=== PATIENT | male | born 1965 | race Caucasian/White ===

== ENCOUNTER 2016-03-26 05:50 | Inpatient (IN) | payer BC ==
[~2016-03-26] VITALS: Ht 193 cm; Wt 93.0 kg
[2016-03-26] VITALS (8 sets, daily range): BP systolic 124–179; BP diastolic 80–104; PULSE 59–85; RESP 16–20; TEMP 97.7–98.4; O2SAT 91–100
[~2016-03-26 05:50] MED LIST: ATOR20TA42 PO; FISH1000 PO; LORTA5 PO; METO50TA11 PO
[2016-03-26] MEDS ORDERED: ACETAMINOPHEN 325 MG TAB PO ONE (06:30)
[2016-03-26] MEDS ORDERED: SODIUM CHLORIDE 0.9% FLUSH 5 ML FLUSH IVF PRN (06:30)
--- NOTE | 2016-03-26 06:51 | PD ---
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 Patient states Fairly severe last night. Patient states that he has had nausea and vomiting and is vomiting even his fluids his drinking. Patient states the pain has been coming and going particularly in his lower quadrants of his abdomen. He also states she's been having some diarrhea. No dysuria but has noticed decreased urine output. Patient states this has not happened to him before. On arrival patient states his symptoms are fairly mild. PFSH Past Medical History Atrial Fibrillation: Yes Heart Rhythm Problems: Yes (AFIB) Cancer: No Cardiovascular Problems: Yes Chest Pain: No Congestive Heart Failure: No Diabetes: No Diminished Hearing: No Endocrine: No Genitourinary: No Hepatitis: No Hiatal Hernia: No Immune Disorder: No Musculoskeletal: Yes (BACK) Neurologic: No Psychiatric: No Reproductive: No Respiratory: No Thyroid Disease: No Past Surgical History Abdominal Surgery: Yes (20% COLON REMOVED) Cardiac Surgery: Yes (CARDIAC CATH IN 2005, ABLATION 2012, HX A FIB) Ear Surgery: No Endocrine Surgery: No Eye Surgery: No Genitourinary Surgery: No Oral Surgery: No Thoracic Surgery: No Other Surgery: Yes Social History Alcohol Use: Yes (3-4 DAILY) Tobacco Use: Yes (1/2 PPD) Substance Use: No Allergies-Medications (Allergen,Severity, Reaction): Coded Allergies: Hydromorphone (Verified Allergy, Severe, Hives, 03/26/16) Reported Meds & Prescriptions Reported Meds & Active Scripts Active Reported Toprol XL (Metoprolol Succinate) 50 Mg Tab 50 Mg PO DAILY Fish Oil 1000 mg ([place]-3 Fatty Acids) 1 Cap Cap 1,000 Mg PO BID Lipitor (Atorvastatin Calcium) 20 Mg Tab 20 Mg PO HS Review of Systems Except as stated in HPI: all other systems reviewed are Neg Physical Exam Narrative GENERAL: Well-developed well-nourished no apparent distress SKIN: Warm and dry. HEAD: Atraumatic. Normocephalic. EYES: Pupils equal and round. No scleral icterus. No injection or drainage. ENT: No nasal bleeding or discharge. Mucous membranes pink and moist. NECK: Trachea midline. No JVD. CARDIOVASCULAR: Regular rate and rhythm. No murmur appreciated. RESPIRATORY: No accessory muscle use. Clear to auscultation. Breath sounds equal bilaterally. GASTROINTESTINAL: Abdomen soft, non-tender, nondistended. Hepatic and splenic margins not palpable. No CVA tenderness. No rebound or percussive tenderness. MUSCULOSKELETAL: No obvious deformities. No clubbing. No cyanosis. No edema. NEUROLOGICAL: Awake and alert. No obvious cranial nerve deficits. Motor grossly within normal limits. Normal speech. PSYCHIATRIC: Appropriate mood and affect; insight and judgment normal. Data Data Last Documented VS Vital Signs Date Time Temp Pulse Resp B/P Pulse Ox O2 Delivery O2 Flow Rate FiO2 03/26/16 11:14 59 18 124/81 100 Room Air 03/26/16 05:54 97.9 Orders Complete Blood Count With Diff (03/26/16 06:16) Comprehensive Metabolic Panel (03/26/16 06:16) Lipase (03/26/16 06:16) Lactic Acid (03/26/16 06:16) Prothrombin Time / Inr (Pt) (03/26/16 06:16) Act Partial Throm Time (Ptt) (03/26/16 06:16) Urinalysis - C+S If Indicated (03/26/16 06:16) Ct Abd/Pel W Iv Contrast(Rout) (03/26/16 06:16) Iv Access Insert/Monitor (03/26/16 06:16) Ecg Monitoring (03/26/16 06:16) Oximetry (03/26/16 06:16) Sodium Chloride 0.9% Flush (Ns Flush) (03/26/16 06:30) Electrocardiogram (03/26/16 06:16) Acetaminophen (Tylenol) (03/26/16 06:30) Morphine Inj (Morphine Inj) (03/26/16 07:00) Iohexol 350 Inj (Omnipaque 350 Inj) (03/26/16 08:15) Sodium Chlor 0.9% 1000 Ml Inj (Ns 1000 M (03/26/16 10:15) Admit Order (Ed Use Only) (03/26/16 11:17) Labs Laboratory Tests Test 03/26/16 03/26/16 03/26/16 03/26/16 06:35 06:40 07:23 10:00 White Blood Count 5.7 TH/MM3 Red Blood Count 5.59 MIL/MM3 Hemoglobin 18.2 GM/DL Hematocrit 51.6 % Mean Corpuscular Volume 92.3 FL Mean Corpuscular Hemoglobin 32.6 PG Mean Corpuscular Hemoglobin 35.3 % Concent Red Cell Distribution Width 12.8 % Platelet Count 153 TH/MM3 Mean Platelet Volume 9.3 FL Neutrophils (%) (Auto) 64.4 % Lymphocytes (%) (Auto) 20.6 % Monocytes (%) (Auto) 12.2 % Eosinophils (%) (Auto) 2.3 % Basophils (%) (Auto) 0.5 % Neutrophils # (Auto) 3.7 TH/MM3 Lymphocytes # (Auto) 1.2 TH/MM3 Monocytes # (Auto) 0.7 TH/MM3 Eosinophils # (Auto) 0.1 TH/MM3 Basophils # (Auto) 0.0 TH/MM3 CBC Comment DIFF FINAL Differential Comment Prothrombin Time 10.1 SEC Prothromb Time International 0.9 RATIO Ratio Activated Partial 25.7 SEC Thromboplast Time Lactic Acid Level 0.9 mmol/L Sodium Level 135 MEQ/L Potassium Level 4.0 MEQ/L Chloride Level 101 MEQ/L Carbon Dioxide Level 26.0 MEQ/L Anion Gap 8 MEQ/L Blood Urea Nitrogen 11 MG/DL Creatinine 0.97 MG/DL Estimat Glomerular Filtration 81 ML/MIN Rate Random Glucose 130 MG/DL Calcium Level 8.4 MG/DL Total Bilirubin 0.8 MG/DL Aspartate Amino Transf 13 U/L (AST/SGOT) Alanine Aminotransferase 21 U/L (ALT/SGPT) Alkaline Phosphatase 56 U/L Total Protein 6.7 GM/DL Albumin 3.3 GM/DL Lipase 99 U/L Ethyl Alcohol Level LESS THAN 3 MG/DL Urine Color YELLOW Urine Turbidity CLEAR Urine pH 6.0 Urine Specific [place] GREATER THAN 1.050 Urine Protein 30 mg/dL Urine Glucose (UA) NEG mg/dL Urine Ketones TRACE mg/dL Urine Occult Blood NEG Urine Nitrite NEG Urine Bilirubin NEG Urine Urobilinogen LESS THAN 2.0 MG/DL Urine Leukocyte Esterase NEG Urine RBC LESS THAN 1 /hpf Urine WBC 1 /hpf Urine Mucus MOD /lpf Microscopic Urinalysis Comment CULT NOT INDICATED Urine Opiates Screen POS Urine Barbiturates Screen NEG Urine Amphetamines Screen NEG Urine Benzodiazepines Screen NEG Urine Cocaine Screen NEG Urine Cannabinoids Screen NEG MDM Medical Decision Making Medical Screen Exam Complete: Yes Emergency Medical Condition: Yes Differential Diagnosis Bowel obstruction, gastritis, gastroenteritis, pancreatitis, cholecystitis, urinary tract infection. Narrative Course Patient was roomed in the emergency department, he was offered pain medicine prefers only Tylenol at this point. Patient's abdomen is fairly benign but he does have a complex surgical history. Therefore indications for CAT scan. Labs are ordered at this time. Discussed with Dr. Mares at change of shift follow-up labs and CAT scan disposition appropriately. Reggie Caraballo MD Mar 26, 2016 06:51
[2016-03-26 06:59] LABS: AUTOMATED NEUTROPHIL # 3.7 TH/MM3 (1.8-7.7); BASOPHIL % 0.5 % (0.0-2.0); EOSINOPHIL # 0.1 TH/MM3 (0-0.4); EOSINOPHIL % 2.3 % (0.0-4.0); HEMATOCRIT 51.6 % (39.0-51.0); HEMO FLAGS DIFF FINAL; LYMPH % 20.6 % (9.0-44.0); LYMPHOCYTE # 1.2 TH/MM3 (1.0-4.8); MEAN CELL VOLUME 92.3 FL (80.0-100.0); MEAN CORPUSCULAR HEMOGLOBIN 32.6 PG (27.0-34.0); MEAN CORPUSCULAR HGB CONC 35.3 % (32.0-36.0); MONO % 12.2 % (0.0-8.0); NEUT % 64.4 % (16.0-70.0); PLATELET COUNT 153 TH/MM3 (150-450); RED BLOOD COUNT 5.59 MIL/MM3 (4.50-5.90); RED CELL DISTRIBUTION WIDTH 12.8 % (11.6-17.2); WHITE BLOOD COUNT 5.7 TH/MM3 (4.0-11.0)
[2016-03-26] MEDS ORDERED: MORPHINE SULFATE 8 MG/ML INJ IV PUSH ONE (07:00)
[2016-03-26 07:09] LABS: APTT (PATIENT) 25.7 SEC (24.3-30.1); INTERNATIONAL NORMALIZED RATIO 0.9 RATIO; PROTHROMBIN TIME - PATIENT 10.1 SEC (9.8-11.6)
[2016-03-26 07:53] LABS: ANION GAP 8 MEQ/L (5-15); AST (GOT) 13 U/L (15-37); BLOOD UREA NITROGEN 11 MG/DL (7-18); CHLORIDE 101 MEQ/L (98-107); GLOMERULAR FILTRATION RATE 81 ML/MIN (>89); SODIUM (NA) 135 MEQ/L (136-145)
[2016-03-26 07:57] LABS: ALKALINE PHOSPHATASE 56 U/L (45-117); ALT (GPT) 21 U/L (12-78); TOTAL BILIRUBIN ADULT 0.8 MG/DL (0.2-1.0)
--- NOTE | 2016-03-26 08:10 | PD ---
Physical Exam Date Seen by Provider: Mar 26, 2016 Data Data Last Documented VS Vital Signs Date Time Temp Pulse Resp B/P Pulse Ox O2 Delivery O2 Flow Rate FiO2 03/26/16 11:14 59 18 124/81 100 Room Air 03/26/16 05:54 97.9 Orders Complete Blood Count With Diff (03/26/16 06:16) Comprehensive Metabolic Panel (03/26/16 06:16) Lipase (03/26/16 06:16) Lactic Acid (03/26/16 06:16) Prothrombin Time / Inr (Pt) (03/26/16 06:16) Act Partial Throm Time (Ptt) (03/26/16 06:16) Urinalysis - C+S If Indicated (03/26/16 06:16) Ct Abd/Pel W Iv Contrast(Rout) (03/26/16 06:16) Iv Access Insert/Monitor (03/26/16 06:16) Ecg Monitoring (03/26/16 06:16) Oximetry (03/26/16 06:16) Sodium Chloride 0.9% Flush (Ns Flush) (03/26/16 06:30) Electrocardiogram (03/26/16 06:16) Acetaminophen (Tylenol) (03/26/16 06:30) Morphine Inj (Morphine Inj) (03/26/16 07:00) Iohexol 350 Inj (Omnipaque 350 Inj) (03/26/16 08:15) Sodium Chlor 0.9% 1000 Ml Inj (Ns 1000 M (03/26/16 10:15) Admit Order (Ed Use Only) (03/26/16 11:17) Labs Laboratory Tests Test 03/26/16 03/26/16 03/26/16 03/26/16 06:35 06:40 07:23 10:00 White Blood Count 5.7 TH/MM3 Red Blood Count 5.59 MIL/MM3 Hemoglobin 18.2 GM/DL Hematocrit 51.6 % Mean Corpuscular Volume 92.3 FL Mean Corpuscular Hemoglobin 32.6 PG Mean Corpuscular Hemoglobin 35.3 % Concent Red Cell Distribution Width 12.8 % Platelet Count 153 TH/MM3 Mean Platelet Volume 9.3 FL Neutrophils (%) (Auto) 64.4 % Lymphocytes (%) (Auto) 20.6 % Monocytes (%) (Auto) 12.2 % Eosinophils (%) (Auto) 2.3 % Basophils (%) (Auto) 0.5 % Neutrophils # (Auto) 3.7 TH/MM3 Lymphocytes # (Auto) 1.2 TH/MM3 Monocytes # (Auto) 0.7 TH/MM3 Eosinophils # (Auto) 0.1 TH/MM3 Basophils # (Auto) 0.0 TH/MM3 CBC Comment DIFF FINAL Differential Comment Prothrombin Time 10.1 SEC Prothromb Time International 0.9 RATIO Ratio Activated Partial 25.7 SEC Thromboplast Time Lactic Acid Level 0.9 mmol/L Sodium Level 135 MEQ/L Potassium Level 4.0 MEQ/L Chloride Level 101 MEQ/L Carbon Dioxide Level 26.0 MEQ/L Anion Gap 8 MEQ/L Blood Urea Nitrogen 11 MG/DL Creatinine 0.97 MG/DL Estimat Glomerular Filtration 81 ML/MIN Rate Random Glucose 130 MG/DL Calcium Level 8.4 MG/DL Total Bilirubin 0.8 MG/DL Aspartate Amino Transf 13 U/L (AST/SGOT) Alanine Aminotransferase 21 U/L (ALT/SGPT) Alkaline Phosphatase 56 U/L Total Protein 6.7 GM/DL Albumin 3.3 GM/DL Lipase 99 U/L Ethyl Alcohol Level LESS THAN 3 MG/DL Urine Color YELLOW Urine Turbidity CLEAR Urine pH 6.0 Urine Specific [place] GREATER THAN 1.050 Urine Protein 30 mg/dL Urine Glucose (UA) NEG mg/dL Urine Ketones TRACE mg/dL Urine Occult Blood NEG Urine Nitrite NEG Urine Bilirubin NEG Urine Urobilinogen LESS THAN 2.0 MG/DL Urine Leukocyte Esterase NEG Urine RBC LESS THAN 1 /hpf Urine WBC 1 /hpf Urine Mucus MOD /lpf Microscopic Urinalysis Comment CULT NOT INDICATED Urine Opiates Screen POS Urine Barbiturates Screen NEG Urine Amphetamines Screen NEG Urine Benzodiazepines Screen NEG Urine Cocaine Screen NEG Urine Cannabinoids Screen NEG MDM Medical Record Reviewed: Yes Supervised Visit with CHARLIE: No Interpretation(s) EKG at 0840: NSR at 63bpm, qt/qtc: 414/421, no acute changes Vital Signs Date Time Temp Pulse Resp B/P Pulse Ox O2 Delivery O2 Flow Rate FiO2 03/26/16 08:21 18 03/26/16 07:26 18 03/26/16 05:54 97.9 85 18 160/104 95 Room Air Differential Diagnosis Small bowel obstruction, gastritis, peptic ulcer disease, UTI Narrative Course Patient was signed out to me by Dr. Caraballo at shift change Patient is a 50-year-old male who presents to emergency room with complaints of right lower quadrant abdominal pain for the past 2 days. Patient reports that he has been feeling nauseous and did vomit with this pain a day ago. Reports that symptoms have been intermittent in nature and lasts about 10 minutes at a time. Patient reports that when he is symptomatic, he is severe sharp pains to his lower abdomen. Patient reports that symptoms have been getting worse over the past 2 days, concern that pain is not going away. Patient also reports concern as he does have history of colon mass which was resected a few years ago. Patient with no obvious fevers or chills at this time. Patient with no recent travels or trips. Labs as well as CT pending. I reviewed all labs as well as CT studies with patient in detail. Last Impressions Abdomen/Pelvis CT 03/26/16 0616 Signed Impressions: Service Date/Time: Saturday, March 26, 2016 08:04 - CONCLUSION: 1. The examination demonstrates abdominal ascites. There is heterogeneous enhancement of the liver suggesting cirrhosis. 2. There has been resection of the cecum and ascending colon. There is diffuse thickening and inflammation of multiple loops of distal ileum throughout the right lower quadrant. There is fluid surrounding these loops of bowel. They are moderately dilated however there is gas and stool within the remaining portions of colon. The inflammatory changes within the small bowel are nonspecific. Followup to ensure there is no underlying obstruction would be warranted. The celiac, SMA and CAMRON are widely patent. Overall, findings are most consistent with a nonspecific enteritis. Rolf Diehl MD The diagnosis of enteritis versus colitis reviewed with patient. Patient was offered admission as he reports nausea and vomiting with symptoms. Patient would like to try by mouth trial first as he reports that he has not been able to drink anything for the past 2 days. If patient does tolerate fluids here, patient would like to be discharged home. Patient was given oral trial, reports severe pain to right lower quadrant after he was given fluids. Patient reports that he feels nauseous and is afraid to go home with pain and nausea. Will obs for serial abdominal exams Case reviewed with Dr. Thomas who accepts pt to service I inadvertently admitted patient to [facility] service instead of [facility] - case reviewed with dr shields - is okay with having patient admitted to their service if they would like the admission, family service accepts pt Diagnosis Primary Impression: Enteritis Additional Impression: Nausea & vomiting Admitting Information Admitting Physician Requests: Observation Anjelica Mares DO Mar 26, 2016 08:10
[2016-03-26] MEDS ORDERED: IOHEXOL 350 MG/ML 10 ML VIAL (for RAD DIAG) IV ONE (08:15)
--- NOTE | 2016-03-26 08:30 | RADRPT ---
EXAM DATE/TIME: 03/26/2016 08:04 [facility] COMPARISON: No previous studies available for comparison. INDICATIONS : Abdominal pain x 2 days. IV CONTRAST: 80 cc Omnipaque 350 (iohexol) IV ORAL CONTRAST: No oral contrast ingested. RADIATION DOSE: 9.96 CTDIvol (mGy) MEDICAL HISTORY : Cardiovascular disease. SURGICAL HISTORY : Cardiac catherization. Cardiac ablation. Colectomy. ENCOUNTER: Initial ACUITY: 2 days PAIN SCALE: 3/10 LOCATION: Bilateral abdomen TECHNIQUE: Volumetric scanning of the abdomen and pelvis was performed. Using automated exposure control and ad justment of the mA and/or kV according to patient size, radiation dose was kept as low as reasonably achievable to obtain optimal diagnostic quality images. FINDINGS: Imaging through the lung bases demonstrates a small area of scarring evident in the anterior aspect o f the right upper lobe. No suspicious lesions are identified. The exam demonstrates heterogeneous enhancement of the liver. There is a small amount of fluid within the upper abdomen. The spleen is at the upper limits of normal in size. Exam would suggest cirrhosis . The pancreas, adrenal glands and kidneys are within normal limits. Incidental note is made of a 1 cm simple cyst in the left kidney. The abdominal aorta is normal in caliber. The celiac, SMA and CAMRON are widely patent No retroperitonea l adenopathy is present. TThe examination demonstrates previous resection of the cecum and descending colon. There is diffuse thickening of multiple loops of distal ileum up to the ileocolic anastomosis. There is fluid evident surrounding these loops of bowel. There are no definite findings to indicate bowel obstruction. Exam would be most consistent with a nonspecific enteritis. Followup to ensure passage of oral contrast th rough these areas would be warranted. There is free fluid within the pelvis. No iliac or inguinal adenopathy is seen. The prostate is óscar l in size. The visualized bony structures demonstrate an old, healed fracture of the left 6 and seventh lateral ribs. There are minimal degenerative changes within the spine. CONCLUSION: 1. The examination demonstrates abdominal ascites. There is heterogeneous enhancement of the liver [place] ggesting cirrhosis. 2. There has been resection of the cecum and ascending colon. There is diffuse thickening and inflamm ation of multiple loops of distal ileum throughout the right lower quadrant. There is fluid surroundi ng these loops of bowel. They are moderately dilated however there is gas and stool within the remain ing portions of colon. The inflammatory changes within the small bowel are nonspecific. Followup to e nsure there is no underlying obstruction would be warranted. The celiac, SMA and CAMRON are widely paten t. Overall, findings are most consistent with a nonspecific enteritis. Rolf Diehl MD on March 26, 2016 at 8:18 Board Certified Radiologist. This report was verified electronically.
[2016-03-26] MEDS ORDERED: SODIUM CHLOR 0.9% 1000 ML INJ 1,000 ML IV ONE (10:15)
[2016-03-26] MEDS ORDERED: OMEG100037 PO (10:21)
[2016-03-26] MEDS ORDERED: TOPR50TA PO (10:21)
[2016-03-26] MEDS ORDERED: LIPI20TA PO (10:21)
[2016-03-26 10:37] LABS: BLOOD, URINE NEG (NEG); COMMENT (UR) CULT NOT INDICATED; CULTURE IF INDICATED CULT NOT INDICATED; GLUCOSE,URINE NEG (NEG); KETONE, URINE TRACE mg/dL (NEG); MUCUS URINE MOD /lpf (OCC); NITRITE,URINE NEG (NEG); URINE COLOR YELLOW (YELLW/STRAW)
--- NOTE | 2016-03-26 11:26 | HHI.HP ---
[facility] Service Family Medicine Primary Care Physician Claire Orona Admission Diagnosis Intractable abdominal pain, enteritis Diagnoses: International Travel<30 Days: No Contact w/Intl Traveler<30days: No Known Affected Area: No History of Present Illness Patient is a 50-year-old male with past medical history significant for laparoscopic colectomy due to a benign mass, presenting due to persistent lower abdominal pain. Patient reports that on Saturday at approximately 10 AM he began to have sharp pain in his lower abdomen. Pain occurs intermittently about every 10 minutes, 89/10 in intensity, he describes the pain as a burning sensation. Pain has been associated with vomiting, nonbloody. There are no alleviating factors, pain is made worse by eating or drinking. He came to the ED because he has been unable to tolerate this pain. His pain has not improved. He has not been able to eat solid food since Saturday, but he has tolerated liquids while in the ED. Yesterday he had a very dark liquid stool, unsure if it was bloody. He denies any new medications, new foods, sick contacts. On Saturday he ate at a restaurant and shared a hamburger with his . His denies similar symptoms. He last passed gas and had a bowel movement yesterday. He has been belching, negative flatus today. He denies ever having similar pain in the past. (Leni Thomas MD R2) Review of Systems Constitutional: DENIES: Fever, Chills Eyes: DENIES: Blurred vision Respiratory: DENIES: Shortness of breath Cardiovascular: DENIES: Chest pain Gastrointestinal: COMPLAINS OF: Abdominal pain, Black stools, Nausea, Vomiting Genitourinary: DENIES: Dysuria Musculoskeletal: DENIES: Joint pain, Muscle aches Integumentary: DENIES: Rash Neurologic: DENIES: Headache Psychiatric: DENIES: Anxiety, Mood changes (Leni Thomas MD R2) Past Family Social History Past Medical History A. Fib, s/p ablation Hyperlipidemia Past Surgical History Colon Surgery due to benign mass, Dr. Thomas Next colonoscopy April 2016 Reported Medications Reported Meds & Active Scripts Active Reported Toprol XL (Metoprolol Succinate) 50 Mg Tab 50 Mg PO DAILY Fish Oil 1000 mg (Carey-3 Fatty Acids) 1 Cap Cap 1,000 Mg PO BID Lipitor (Atorvastatin Calcium) 20 Mg Tab 20 Mg PO HS (Leni Thomas MD R2) Allergies: Coded Allergies: Hydromorphone (Verified Allergy, Severe, Hives, 03/26/16) Active Ordered Medications Inpatient Medications Acetaminophen (Tylenol) 650 mg Q4H PRN PO TEMP>100.4F,PAIN1-10,IRRITABLE; Start 03/26/16 at 11:30 Acetaminophen/ Hydrocodone Bitart ([place] 5-325 Mg) 1 tab Q4H PRN PO PAIN SCALE 1 TO 5; Start 03/26/16 at 12:00 Acetaminophen/ Hydrocodone Bitart ([place] 10-325 Mg) 1 tab Q4H PRN PO PAIN SCALE 6 TO 10; Start 03/26/16 at 12:00 Atorvastatin Calcium (Lipitor) 20 mg HS PO ; Start 03/26/16 at 21:00 Flumazenil (Romazicon Inj) 0.2 mg Q1M PRN IV PUSH SEE LABEL COMMENTS; Start at 11:45 IV Flush (NS Flush) 2 ml BID FLUSH ; Start 03/26/16 at 21:00 Lorazepam (Ativan Inj) 2 mg Q15M PRN IV PUSH CIWA > 20; Start 03/26/16 at 11:45 Lorazepam (Ativan) 2 mg Q2H PRN PO CIWA 11-14; Start 03/26/16 at 11:45 Metoclopramide HCl (Reglan Inj) 10 mg Q6H PRN IV NAUSEA OR VOMITING; Start at 12:00 Metoprolol Succinate (Toprol Xl) 50 mg DAILY PO ; Start 03/27/16 at 09:00 Morphine Sulfate (Morphine Inj) 4 mg Q3H PRN IV PUSH BREAKTHROUGH PAIN Last administered on 03/26/16t 14:10; Start 03/26/16 at 12:00 Morphine Sulfate 6 mg 6 mg ONCE ONCE IV PUSH Last administered on 03/26/16t 07 :26; Start 03/26/16 at 07:00; Stop 03/26/16 at 07:01; Status DC Ondansetron HCl (Zofran Inj) 4 mg Q6HR PRN IV NAUSEA OR VOMITING; Start at 12:00 Pantoprazole Sodium (Protonix Inj) 40 mg DAILY IV ; Start 03/27/16 at 09:00 Piperacillin Sod/ Tazobactam Sod (Zosyn 3.375 Gm Premix) 50 ml @ 100 mls/hr Q6H IV ; Start 03/26/16 at 16:00 Prochlorperazine (Compazine Supp) 25 mg Q12HR PRN VA NAUSEA OR VOMITING; Start 03/26/16 at 12:00 Simethicone 125 mg 125 mg Q8HR PO Last administered on 03/26/16 14:09; Start 03/26/16 at 14:00 Sodium Chloride (NS 1000 ml Inj) 1,000 ml @ 130 mls/hr Q7H42M IV Last administered on 03/26/16 12:07; Start 03/26/16 at 11:28 Family History Mother: Unknown Father: at 80, cardiac bypass Social History Currently works reconditioning both propellers. Lives at home with girlfriend Smokes 1/2 Pack to 1 PPD, for the past 20yrs Drinks about 24 case of beer per week Denies illicit drug use. (Leni Thomas MD R2) Physical Exam Vital Signs Vital Signs Date Time Temp Pulse Resp B/P Pulse Ox O2 Delivery O2 Flow Rate FiO2 03/26/16 11:14 59 18 124/81 100 Room Air 03/26/16 10:50 99 Room Air 03/26/16 08:21 18 03/26/16 07:26 18 03/26/16 05:54 97.9 85 18 160/104 95 Room Air Physical Exam GENERAL: This is a well-nourished, well-developed patient, in no apparent distress. SKIN: No rashes, ecchymoses or lesions. Cool and dry. HEAD: Atraumatic. Normocephalic. No temporal or scalp tenderness. EYES: Pupils equal round and reactive. Extraocular motions intact. No scleral icterus. No injection or drainage. ENT: Nose without bleeding, purulent drainage or septal hematoma. Throat without erythema, tonsillar hypertrophy or exudate. Uvula deviated to the left. Airway patent. NECK: Trachea midline. No JVD or lymphadenopathy. Supple, nontender, no meningeal signs. CARDIOVASCULAR: Regular rate and rhythm without murmurs, gallops, or rubs. RESPIRATORY: Clear to auscultation. Breath sounds equal bilaterally. No wheezes , rales, or rhonchi. GASTROINTESTINAL: Abdomen soft, nondistended, patient endorses left lower quadrant tenderness with deep palpation, no dominant tenderness on light palpation. No hepato-splenomegaly, or palpable masses. No guarding. Negative Dailey sign. + Bowel sounds. MUSCULOSKELETAL: Extremities without clubbing, cyanosis, or edema. No joint tenderness, effusion, or edema noted. No calf tenderness. Negative Homans sign bilaterally. NEUROLOGICAL: Awake and alert. Motor and sensory grossly within normal limits. Five out of 5 muscle strength in all muscle groups. Normal speech. Laboratory Laboratory Tests Test 03/26/16 03/26/16 03/26/16 03/26/16 06:35 06:40 07:23 10:00 White Blood Count 5.7 Red Blood Count 5.59 Hemoglobin 18.2 Hematocrit 51.6 Mean Corpuscular Volume 92.3 Mean Corpuscular Hemoglobin 32.6 Mean Corpuscular Hemoglobin 35.3 Concent Red Cell Distribution Width 12.8 Platelet Count 153 Mean Platelet Volume 9.3 Neutrophils (%) (Auto) 64.4 Lymphocytes (%) (Auto) 20.6 Monocytes (%) (Auto) 12.2 Eosinophils (%) (Auto) 2.3 Basophils (%) (Auto) 0.5 Neutrophils # (Auto) 3.7 Lymphocytes # (Auto) 1.2 Monocytes # (Auto) 0.7 Eosinophils # (Auto) 0.1 Basophils # (Auto) 0.0 CBC Comment DIFF FINAL Differential Comment Prothrombin Time 10.1 Prothromb Time International 0.9 Ratio Activated Partial 25.7 Thromboplast Time Lactic Acid Level 0.9 Sodium Level 135 Potassium Level 4.0 Chloride Level 101 Carbon Dioxide Level 26.0 Anion Gap 8 Blood Urea Nitrogen 11 Creatinine 0.97 Estimat Glomerular Filtration 81 Rate Random Glucose 130 Calcium Level 8.4 Total Bilirubin 0.8 Aspartate Amino Transf 13 (AST/SGOT) Alanine Aminotransferase 21 (ALT/SGPT) Alkaline Phosphatase 56 Total Protein 6.7 Albumin 3.3 Lipase 99 Urine Color YELLOW Urine Turbidity CLEAR Urine pH 6.0 Urine Specific [place] GREATER THAN 1.050 Urine Protein 30 Urine Glucose (UA) NEG Urine Ketones TRACE Urine Occult Blood NEG Urine Nitrite NEG Urine Bilirubin NEG Urine Urobilinogen LESS THAN 2.0 Urine Leukocyte Esterase NEG Urine RBC LESS THAN 1 Urine WBC 1 Urine Mucus MOD Microscopic Urinalysis Comment CULT NOT INDICATED (Leni Thomas MD R2) Result Diagram: 03/26/16 0635 03/26/16 0723 Imaging Last 24 hours Impressions Abdomen/Pelvis CT 03/26/16 0616 Signed Impressions: Service Date/Time: Saturday, March 26, 2016 08:04 - CONCLUSION: 1. The examination demonstrates abdominal ascites. There is heterogeneous enhancement of the liver suggesting cirrhosis. 2. There has been resection of the cecum and ascending colon. There is diffuse thickening and inflammation of multiple loops of distal ileum throughout the right lower quadrant. There is fluid surrounding these loops of bowel. They are moderately dilated however there is gas and stool within the remaining portions of colon. The inflammatory changes within the small bowel are nonspecific. Followup to ensure there is no underlying obstruction would be warranted. The celiac, SMA and CAMRON are widely patent. Overall, findings are most consistent with a nonspecific enteritis. Rolf Diehl MD (Leni Thomas MD R2) Assessment and Plan Assessment and Plan Patient is a 50-year-old male with past medical history significant for laparoscopic colectomy due to a benign mass, presenting due to persistent lower abdominal pain, nausea and vomiting, admitted with enteritis. Code Status Full Discussed Condition With sdw Dr. Perez wdw Dr. Manzo, Dr. Hazel (Leni Thomas MD R2) Attending Attestation The patient has been seen and examined. The chart and all resident notes have been reviewed. I agree that inpatient care is appropriate and that a two midnight stay is expected for the reasons documented in the resident history and physical. I have discussed this with the resident and certify the resident s order for inpatient admission. (Marni Manzo MD) Problem List: (1) Enteritis Status: Acute Plan: Patient endorses intractable intermittent lower abdominal pain that has persisted over the past 2 days, associated with nausea and vomiting. He has history of partial colectomy to remove a benign mass. Pain has significantly improved, mild left lower quadrant pain with deep palpation of the left lower quadrant. Patient with negative flatus, had one loose dark bowel movement x1 yesterday. -Hemoccult was negative -Stool Hemoccult ordered -Monitor for bowel movement, passage of gas. -Zosyn 3.375 g IV Q6hrs to cover for possible intra-abdominal infection -Consider consulting Dr. Tuyet Thomas, who preformed GI surgery in 2013, or one of her partners Pain control: [place] 5/325, 1 tab Q4hrs prn pain 15 [place] 10/325, 1 tab Q4hrs prn pain 6-10 Morphine prn breakthrough Imaging: Abdomen/pelvis CT: Abdominal ascites. Heterogenous enhancement of the liver suggesting cirrhosis. Resection of the cecum and ascending colon. There is diffuse thickening and inflammation of multiple loops of distal ileum throughout the right lower quadrant. There is fluid surrounding these loops of bowel. They are moderately dilated however there is gas and stool within the remaining portions of colon. The inflammatory changes within the small bowel are nonspecific. Follow-up to ensure there is no underlying obstruction would be warranted. Findings are most consistent with a nonspecific enteritis. (2) Nausea & vomiting Status: Acute Plan: Patient has been able to tolerate liquids by mouth while in the ED, reassuring. -Zofran 4 mg IV Q6hrs PRN -Reglan 10mg IV PRN -Compazine Supp PRN (3) History of alcohol use Status: Acute Plan: -Will check blood ethanol level -[facility] protocol ordered (4) Liver cirrhosis Status: Acute Plan: CT of the abdomen was significant for heterogenous enhancement of the liver suggesting cirrhosis. Patient denies history of hepatitis. LFTs are within normal limits -We'll check hepatitis profile (5) HTN (hypertension) Status: Acute Plan: Continue home metoprolol succinate 50 mg PO Daily (6) Hyperlipemia Status: Acute Plan: -Continue home atorvastatin 20 mg po QHS (7) FEN/PPX Status: Acute Plan: Fluids: Normal saline at 130 mls/hr Electrolytes: Sodium slightly low at 135, continue to monitor and replete as necessary Nutrition: Full liquid diet, to be advanced as tolerated Dvt PPX: Lovenox GI PPX: Protonix (Leni Thomas MD R2) Leni Thomas MD R2 Mar 26, 2016 11:26 Marni Manzo MD Mar 27, 2016 16:02
[2016-03-26] MEDS ORDERED: SODIUM CHLORIDE 0.9% FLUSH 5 ML FLUSH FLUSH PRN (11:30)
[2016-03-26] MEDS ORDERED: ACETAMINOPHEN 325 MG TAB PO PRN (11:30)
[2016-03-26] MEDS ORDERED: LORazepam 2 MG/ML VIAL IV PUSH PRN ×4 (11:45)
[2016-03-26] MEDS ORDERED: FLUMAZENIL 0.5 MG/5 ML VIAL IV PUSH PRN (11:45)
[2016-03-26] MEDS ORDERED: LORazepam 1 MG TAB PO PRN (11:45)
[2016-03-26] MEDS ORDERED: LORazepam 2 MG TAB PO PRN (11:45)
[2016-03-26] MEDS ORDERED: METOCLOPRAMIDE HCL 10 MG/2 ML VIAL IV PRN (12:00)
[2016-03-26] MEDS ORDERED: PROCHLORPERAZINE 25 MG SUPP PR PRN (12:00)
[2016-03-26] MEDS ORDERED: ACETAMINOPHEN/HYDROcodone 325 MG/10 MG TAB PO PRN (12:00)
[2016-03-26] MEDS ORDERED: ACETAMINOPHEN/HYDROcodone 325 MG/5 MG TAB PO PRN (12:00)
[2016-03-26] MEDS: SODIUM CHLOR 0.9% 1000 ML INJ 1,000 ML IV SCH ×2 (12:07→20:42)
[2016-03-26 12:36] LABS: AMPHETAMINE, URINE NEG (NEG); BARBITURATES, URINE NEG (NEG); COCAINE, URINE NEG (NEG)
[2016-03-26] MEDS: SIMETHICONE 125 MG CHEWABLE TAB PO SCH ×2 (14:09→20:41)
[2016-03-26] MEDS: MORPHINE SULFATE 4 MG/ML INJ IV PUSH PRN ×3 (14:10→20:46)
[2016-03-26] MEDS: PIPERACIL-TAZO 3.375 GM PREMIX 50 ML IV SCH ×2 (16:14→20:43)
--- NOTE | 2016-03-26 16:27 | HHI.FPPN ---
Subjective Subjective Patient seen and examined. Case reviewed and discussed with the resident team. Please refer to resident H&P for further details regarding HPI, ROS, PMH, SurgHx , Fh and SocHx In summary, patient is a 50yoM with a history of partial ascending colectomy by Dr. Thomas in 04/2013 presenting with 2-3 days history of RL abdominal pain, distention and inability to pass stool. He presents today after progressive worsening of lower abdominal pain and minimal flatus. He has had limited PO intake due to pain with oral intake of fluids/food. No fevers, chills. +Vomitus, which patient describes as black yesterday, no emesis today. Denies nausea. [facility] Objective Objective Last Impressions Abdomen/Pelvis CT 03/26/16 0616 Signed Impressions: Service Date/Time: Saturday, March 26, 2016 08:04 - CONCLUSION: 1. The examination demonstrates abdominal ascites. There is heterogeneous enhancement of the liver suggesting cirrhosis. 2. There has been resection of the cecum and ascending colon. There is diffuse thickening and inflammation of multiple loops of distal ileum throughout the right lower quadrant. There is fluid surrounding these loops of bowel. They are moderately dilated however there is gas and stool within the remaining portions of colon. The inflammatory changes within the small bowel are nonspecific. Followup to ensure there is no underlying obstruction would be warranted. The celiac, SMA and CAMRON are widely patent. Overall, findings are most consistent with a nonspecific enteritis. Rolf Diehl MD Laboratory Tests - Abnormals Test 03/26/16 03/26/16 03/26/16 06:35 07:23 10:00 Hemoglobin 18.2 GM/DL Hematocrit 51.6 % Monocytes (%) (Auto) 12.2 % Sodium Level 135 MEQ/L Estimat Glomerular Filtration 81 ML/MIN Rate Random Glucose 130 MG/DL Calcium Level 8.4 MG/DL Aspartate Amino Transf 13 U/L (AST/SGOT) Albumin 3.3 GM/DL Urine Specific [place] GREATER THAN 1.050 Urine Protein 30 mg/dL Urine Ketones TRACE mg/dL Urine Mucus MOD /lpf Urine Opiates Screen POS Vital Signs 03/26/16 03/26/16 03/26/16 03/26/16 05:54 07:26 08:21 10:50 Temp 97.9 Pulse 85 Resp 18 18 18 B/P 160/104 Pulse Ox 95 99 O2 Delivery Room Air Room Air 03/26/16 03/26/16 11:14 14:13 Pulse 59 69 Resp 18 16 B/P 124/81 179/102 Pulse Ox 100 98 O2 Delivery Room Air Room Air Physical exam GENERAL: WDWN male, resting in ER bed. Mild painful distress. SKIN: Warm and dry. No rashes, lesions HEAD: Normocephalic AT. EYES: No scleral icterus. No injection or drainage. ENT: OP clear, MM slightly dry. NECK: Supple, trachea midline. No JVD or lymphadenopathy. CARDIOVASCULAR: Regular rate and rhythm without audible murmurs, gallops, or rubs. RESPIRATORY: Breath sounds equal and clear to auscultation bilaterally. No accessory muscle use. GASTROINTESTINAL: Abdomen soft, mild tenderness, worse over RLQ, mildly distended. No rebound, no guarding. Tinkering BS, hypoactive. MUSCULOSKELETAL: No cyanosis, or edema. No calf tenderness BACK: Nontender without obvious deformity. No CVA tenderness. NEURO: Awake and alert. Normal speech. CN grossly intact. Assessment Assessment 50yoM admitted with: Abdominal pain, ileitis, concern for ileus Hx ascending colectomy for benign polyp Dehydration Intractable pain Elevated BP Tobacco dependence Hx AF s/p ablation Heavy alcohol consumption with cirrhosis PLAN PLAN IVF Pain control, care with narcotics Consult to CRS, known to Dr. Tuyet Thomas flat, upright AXR in the AM Empiric antibiotic therapy for ileitis Trend cbc, CMP Mobilization, OOB Is/Os Resume home meds as appropriate Patient seen and examined. Case reviewed and discussed Agree with plan of care as discussed with me and documented in the resident note. Marni Manzo MD Mar 26, 2016 16:27
[2016-03-26] MEDS: ONDANSETRON HCL 4 MG/2 ML VIAL IV PRN (17:50)
[2016-03-26] MEDS: SODIUM CHLORIDE 0.9% FLUSH 5 ML FLUSH FLUSH SCH (20:43)
[2016-03-26] MEDS: ENOXAPARIN SODIUM 40 MG/0.4 ML SYRINGE SQ SCH (20:44)
[2016-03-26] MEDS: ATORVASTATIN 20 MG TAB PO SCH (20:51)
[2016-03-27] MEDS: MORPHINE SULFATE 4 MG/ML INJ IV PUSH PRN ×2 (00:29→05:26)
[2016-03-27] MEDS: ONDANSETRON HCL 4 MG/2 ML VIAL IV PRN (00:29)
[2016-03-27] MEDS: SIMETHICONE 125 MG CHEWABLE TAB PO SCH ×3 (05:26→20:22)
[2016-03-27] MEDS: PIPERACIL-TAZO 3.375 GM PREMIX 50 ML IV SCH ×2 (05:26→09:16)
[2016-03-27] MEDS: SODIUM CHLOR 0.9% 1000 ML INJ 1,000 ML IV SCH ×3 (05:26→17:38)
[2016-03-27 06:14] VITALS: BP 121/73; PULSE 64; RESP 18; TEMP 97.1; O2SAT 94
[2016-03-27 07:02] LABS: AUTOMATED NEUTROPHIL # 2.7 TH/MM3 (1.8-7.7); BASOPHIL % 0.3 % (0.0-2.0); EOSINOPHIL # 0.1 TH/MM3 (0-0.4); EOSINOPHIL % 1.2 % (0.0-4.0); HEMATOCRIT 46.5 % (39.0-51.0); HEMO FLAGS DIFF FINAL; LYMPH % 21.7 % (9.0-44.0); LYMPHOCYTE # 0.9 TH/MM3 (1.0-4.8); MEAN CELL VOLUME 91.9 FL (80.0-100.0); MEAN CORPUSCULAR HEMOGLOBIN 32.3 PG (27.0-34.0); MEAN CORPUSCULAR HGB CONC 35.1 % (32.0-36.0); NEUT % 62.8 % (16.0-70.0); PLATELET COUNT 146 TH/MM3 (150-450); RED BLOOD COUNT 5.05 MIL/MM3 (4.50-5.90); RED CELL DISTRIBUTION WIDTH 12.8 % (11.6-17.2); WHITE BLOOD COUNT 4.3 TH/MM3 (4.0-11.0)
[2016-03-27 07:29] LABS: BICARBONATE 26.6 MEQ/L (21.0-32.0); POTASSIUM 3.7 MEQ/L (3.5-5.1)
[2016-03-27] MEDS: SODIUM CHLORIDE 0.9% FLUSH 5 ML FLUSH FLUSH SCH ×2 (08:18→20:22)
[2016-03-27 08:24] VITALS: BP 166/94; PULSE 63; RESP 17; TEMP 98.4; O2SAT 94
--- NOTE | 2016-03-27 08:36 | EKG ---
Date Performed: 03/26/2016 Time Performed: 08:40:43 PTAGE: 50 years EKG: Sinus rhythm POSSIBLE RIGHT VENTRICULAR CONDUCTION DELAY PROBABLE INFERIOR MYOCARDIAL INFARCTION ABNORMAL ECG PREVIOUS TRACING : 04/22/2013 18.30 Compared to prior tracing no significant change DOCTOR: Sadiq Thomas Interpretating Date/Time 03/27/2016 08:34:42
[2016-03-27] MEDS ORDERED: PANTOPRAZOLE SODIUM 40 MG VIAL IV SCH (09:00)
[2016-03-27] MEDS: METOPROLOL SUCCINATE 50 MG EXTENDED RELEASE TAB PO SCH (09:16)
--- NOTE | 2016-03-27 09:55 | HHI.FPPN ---
Subjective Remarks Pt seen and examined this morning. He had severe abdominal pain overnight, partially relived by pain medication. +flatus, has not yet had a bowel movement. Endorses nausea, denies vomiting. He has been able to tolerate po liquids, but this causes abdominal discomfort. (Leni Thomas MD R2) Objective Vitals Vital Signs Date Time Temp Pulse Resp B/P Pulse Ox O2 Delivery O2 Flow Rate FiO2 03/27/16 08:24 98.4 63 17 166/94 94 03/27/16 06:14 97.1 64 18 121/73 94 03/27/16 06:11 16 03/26/16 23:59 98.4 65 18 172/88 94 03/26/16 22:11 98.2 64 18 152/80 91 03/26/16 16:47 66 16 162/83 97 Room Air 03/26/16 14:13 69 16 179/102 98 Room Air 03/26/16 11:14 59 18 124/81 100 Room Air 03/26/16 10:50 99 Room Air (Leni Thomas MD R2) Result Diagram: 03/27/16 0607 03/27/16 0607 Objective Remarks GENERAL: This is a well-nourished, well-developed patient, appears to be uncomfortable. SKIN: No rashes, ecchymoses or lesions. Cool and dry. HEENT: Atraumatic. Normocephalic. Extraocular motions intact. No scleral icterus. No injection or drainage. Nose without bleeding, purulent drainage or septal hematoma. Throat without erythema, tonsillar hypertrophy or exudate. Uvula deviated to the left. Airway patent. CARDIOVASCULAR: Regular rate and rhythm without murmurs, gallops, or rubs. RESPIRATORY: Clear to auscultation. Breath sounds equal bilaterally. No wheezes , rales, or rhonchi. GASTROINTESTINAL: Abdomen soft, slightly distended, patient endorses andrea difuse lower abdominal tenderness, no rebound. No hepato-splenomegaly, or palpable masses. + Bowel sounds. MUSCULOSKELETAL: Extremities without clubbing, cyanosis, or edema. No joint tenderness, effusion, or edema noted. No calf tenderness. Negative Homans sign bilaterally. NEUROLOGICAL: Awake and alert. Motor and sensory grossly within normal limits. Normal speech. (Leni Thomas MD R2) A/P Assessment and Plan Patient is a 50-year-old male with past medical history significant for laparoscopic colectomy due to a benign mass, presenting due to persistent lower abdominal pain, nausea and vomiting, admitted with enteritis. Discharge Planning Antiipate discharge in 1-2 days, pending clearance by GI and colorectal surgery. sdw Dr. Manzo, Dr. Hazel, Dr. Perez, Dr. Salas (Leni Thomas MD R2) Attending Attestation Patient seen and examined with the resident team. Case reviewed and discussed with the resident team Agree with plan of care as discussed with me and documented in the resident note. (Marni Manzo MD) Problem List: (1) Partial small bowel obstruction Status: Acute Plan: Abdominal x-ray significant for partial small bowel obstruction. Pt continues to endorse abdominal pain, appears more distended on exam today. Update: Pt has had a bowel movement this afternoon, resolving. -GI consulted, appreciate recommendations -If patient develops nausea and vomiting consider NG tube placement -Dr. Tuyet Thomas, who preformed GI surgery in 2013 has been consulted, appreciate recommendations Imagin03/27/16: Bowel gas pattern concerning for partial small bowel obstruction with air-fluid levels and multiple small bowel loops visualized. Minimal air in the rectal vault. (2) Enteritis Status: Acute Plan: Patient endorses intractable intermittent lower abdominal pain, partially relieved by pain medication. He has history of partial colectomy to remove a benign mass. +flatus, has not had a bowel movement since being admitted. -Hemoccult was negative -Stool Hemoccult ordered -Monitor for bowel movement, passage of gas. -Stool studies ordered by GI -Zosyn 3.375 g IV Q6hrs to cover for possible intra-abdominal infection, Discontinued (03/26-03/27) Pain control: [place] 5/325, 1 tab Q4hrs prn pain 15 [place] 10/325, 1 tab Q4hrs prn pain 6-10 Morphine prn breakthrough Imaging: Abdomen/pelvis CT: Abdominal ascites. Heterogenous enhancement of the liver suggesting cirrhosis. Resection of the cecum and ascending colon. There is diffuse thickening and inflammation of multiple loops of distal ileum throughout the right lower quadrant. There is fluid surrounding these loops of bowel. They are moderately dilated however there is gas and stool within the remaining portions of colon. The inflammatory changes within the small bowel are nonspecific. Follow-up to ensure there is no underlying obstruction would be warranted. Findings are most consistent with a nonspecific enteritis. (3) Nausea & vomiting Status: Acute Plan: Patient has been able to tolerate liquids by mouth while in the ED, currently NPO due to concern for small bowel obstruction. -Zofran 4 mg IV Q6hrs PRN -Reglan 10mg IV PRN -Compazine Supp PRN -See place above (4) History of alcohol use Status: Acute Plan: -Blood ethanol level less than 3 -CIWA protocol (5) Liver cirrhosis Status: Acute Plan: CT of the abdomen was significant for heterogenous enhancement of the liver suggesting cirrhosis. Patient denies history of hepatitis. LFTs are within normal limits -Hepatitis profile pending (6) HTN (hypertension) Status: Acute Plan: Continue home metoprolol succinate 50 mg PO Daily (7) Hyperlipemia Status: Acute Plan: -Continue home atorvastatin 20 mg po QHS (8) FEN/PPX Status: Acute Plan: Fluids: Normal saline at 130 mls/hr Electrolytes: Sodium slightly low at 135, continue to monitor and replete as necessary Nutrition: Full liquid diet, to be advanced as tolerated Dvt PPX: Lovenox GI PPX: Protonix (Leni Thomas MD R2) Leni Thomas MD R2 Mar 27, 2016 09:55 Marni Manzo MD Mar 29, 2016 15:10
[2016-03-27] MEDS ORDERED: MAGNESIUM HYDROXIDE SUSP 30 ML CUP PO SCH (10:00)
--- NOTE | 2016-03-27 10:46 | RADRPT ---
EXAM DATE/TIME: 03/27/2016 10:21 [place] COMPARISON: No previous studies available for comparison. INDICATIONS : Constipation, nausea, vomiting, abdominal pain. MEDICAL HISTORY : Smoker. A-fib. SURGICAL HISTORY : Colon resection. ENCOUNTER: Subsequent ACUITY: 3 days PAIN SCORE: 10/10 LOCATION: Bilateral middle quadrants. FINDINGS: Supine and upright views of the abdomen were performed. Bowel gas pattern is abnormal with multiple a ir-fluid levels in the upright exam and air distention of small bowel loops throughout the abdomen. S mall amount of air is seen in the rectal vault there is minimal air within the colon. CONCLUSION: Bowel gas pattern concerning for a partial small bowel structure in which air distention and air -fluid levels in multiple small bowel loops. Minimal air in the rectal vault. Alo Patel MD on March 27, 2016 at 10:42 Board Certified Radiologist. This report was verified electronically.
--- NOTE | 2016-03-27 10:50 | PD.CONS ---
HPI History of Present Illness This is a 50 year old male patient who came to the ER for evaluation of abdominal pain. He woke up Saturday morning with severe lower abdominal pain that he describes as an intermittent pressure/cramping/sharp at times that radiates to his epigastric area- where he has burning discomfort. He reports that for the past 3 days, this would come and go about every 10 minutes. He does have associated nausea and vomited once with bilious material. He reports that he may have had some chills on Saturday, but no fever and has not had any since that time. He had a loose stool on Saturday and Saturday. He reports that it was dark, but not black and no evidence of bleeding. He reports that his symptoms were aggravated by po intake and that he did not take any OTC meds for this. The night prior to the onset of symptoms, he did eat a suspicious food with an open faced chili sandwich with raw onions. However, his girlfriend ate the other half and she has not had any symptoms. He denies any recent abx use. He reports that Dr. Tuyet Thomas performed a hemicolectomy for a benign mass (the size of an orange) about 3 years ago. He reports that he is due for a repeat colonoscopy in April of 2016. He denies any known history of liver disease. He reports that he drinks occasionally, but then stated sometimes this progresses to daily drinking. (Gladys Dubois) PFSH Past Medical History Benign colon mass Atrial fibrillation, s/p ablation Hyperlipidemia Past Surgical History Ablation for atrial fibrillation Partial hemicolectomy for benign mass Colonoscopy (Gladys Dubois) Coded Allergies: Hydromorphone (Verified Allergy, Severe, Hives, 03/26/16) Medications Allergies Coded Allergies Type Severity Reaction Last Updated Verified Hydromorphone Allergy Severe Hives 03/26/16 Yes Active Scripts Medications Dose Route/Sig Days Date Category Toprol XL (Metoprolol Succinate) 50 Mg Tab 50 Mg PO DAILY 03/26/16 Reported Fish Oil 1000 mg ([place]-3 Fatty Acids) 1 Cap Cap 1,000 Mg PO BID 03/26/16 Reported Lipitor (Atorvastatin Calcium) 20 Mg Tab 20 Mg PO HS 03/26/16 Reported Family History Dad had colon cancer in his late 60's/early 70's, still living. Social History 2 PPD Occasional ETOH, but then stated sometimes this is daily (Gladys Dubois MINGO) Review of Systems Constitutional: COMPLAINS OF: Fatigue, Chills, DENIES: Fever, Weight loss Respiratory: DENIES: Cough Cardiovascular: DENIES: Chest pain Gastrointestinal: COMPLAINS OF: Abdominal pain, Diarrhea, Nausea, Vomiting, DENIES: Black stools, Bloody stools, Constipation, Heartburn Musculoskeletal: DENIES: Joint pain Integumentary: DENIES: Abnormal pigmentation Hematologic/lymphatic: DENIES: Bruising Neurologic: DENIES: Headache Psychiatric: DENIES: Confusion (Gladys Dubois MINGO) GI Exam Vitals I&O Vital Signs Date Time Temp Pulse Resp B/P Pulse Ox O2 Delivery O2 Flow Rate FiO2 03/27/16 08:24 98.4 63 17 166/94 94 03/27/16 06:14 97.1 64 18 121/73 94 03/27/16 06:11 16 03/26/16 23:59 98.4 65 18 172/88 94 03/26/16 22:11 98.2 64 18 152/80 91 03/26/16 16:47 66 16 162/83 97 Room Air 03/26/16 14:13 69 16 179/102 98 Room Air 03/26/16 11:14 59 18 124/81 100 Room Air 03/26/16 10:50 99 Room Air Imaging Last Impressions Abdomen/Pelvis CT 03/26/16 0616 Signed Impressions: Service Date/Time: Saturday, March 26, 2016 08:04 - CONCLUSION: 1. The examination demonstrates abdominal ascites. There is heterogeneous enhancement of the liver suggesting cirrhosis. 2. There has been resection of the cecum and ascending colon. There is diffuse thickening and inflammation of multiple loops of distal ileum throughout the right lower quadrant. There is fluid surrounding these loops of bowel. They are moderately dilated however there is gas and stool within the remaining portions of colon. The inflammatory changes within the small bowel are nonspecific. Followup to ensure there is no underlying obstruction would be warranted. The celiac, SMA and CAMRON are widely patent. Overall, findings are most consistent with a nonspecific enteritis. Rolf Diehl MD Laboratory Test 03/27/16 06:07 White Blood Count 4.3 TH/MM3 Red Blood Count 5.05 MIL/MM3 Hemoglobin 16.3 GM/DL Hematocrit 46.5 % Mean Corpuscular Volume 91.9 FL Mean Corpuscular Hemoglobin 32.3 PG Mean Corpuscular Hemoglobin 35.1 % Concent Red Cell Distribution Width 12.8 % Platelet Count 146 TH/MM3 Mean Platelet Volume 8.8 FL Neutrophils (%) (Auto) 62.8 % Lymphocytes (%) (Auto) 21.7 % Monocytes (%) (Auto) 14.0 % Eosinophils (%) (Auto) 1.2 % Basophils (%) (Auto) 0.3 % Neutrophils # (Auto) 2.7 TH/MM3 Lymphocytes # (Auto) 0.9 TH/MM3 Monocytes # (Auto) 0.6 TH/MM3 Eosinophils # (Auto) 0.1 TH/MM3 Basophils # (Auto) 0.0 TH/MM3 CBC Comment DIFF FINAL Differential Comment Sodium Level 138 MEQ/L Potassium Level 3.7 MEQ/L Chloride Level 104 MEQ/L Carbon Dioxide Level 26.6 MEQ/L Anion Gap 7 MEQ/L Blood Urea Nitrogen 8 MG/DL Creatinine 0.99 MG/DL Estimat Glomerular Filtration 79 ML/MIN Rate Random Glucose 115 MG/DL Calcium Level 8.0 MG/DL Physical Examination HEENT: Normocephalic; atraumatic; no jaundice. CHEST: CTA. CARDIAC: RRR. ABDOMEN: Soft, nondistended, mild lower abdominal tenderness; no hepatosplenomegaly; bowel sounds are present in all four quadrants. EXTREMITIES: No clubbing, cyanosis, or edema. SKIN: Normal; no rash; no jaundice. [employer] TECHNICIAN: No focal deficits; alert and oriented times three. (Gladys Dubois) Assessment and Plan Plan ASSESSMENT: - Abdominal pain with N/V/D, likely gastroenteritis. Abdomen/Pelvis CT (03/26/16 )----> 1. The examination demonstrates abdominal ascites. There is heterogeneous enhancement of the liver suggesting cirrhosis. 2. There has been resection of the cecum and ascending colon. There is diffuse thickening and inflammation of multiple loops of distal ileum throughout the right lower quadrant. There is fluid surrounding these loops of bowel. They are moderately dilated however there is gas and stool within the remaining portions of colon. The inflammatory changes within the small bowel are nonspecific. Followup to ensure there is no underlying obstruction would be warranted. The celiac, SMA and CAMRON are widely patent. Overall, findings are most consistent with a nonspecific enteritis. (+) Suspicious food as above. Will get stool studies. Zosyn. - Abnormal imaging concerning for PSBO. Abdomen X-Ray (03/27/16)-----> Bowel gas pattern concerning for a partial small bowel structure in which air distention and air-fluid levels in multiple small bowel loops. Minimal air in the rectal vault. Clinically abdomen is soft. Had bowel movements on Saturday/Saturday. Will get SBFT, Consult Dr. Thomas. - Abnormal imaging of liver suggesting possible liver cirrhosis. Pt denies any known hx of liver cirrhosis. His ETOH is unclear, he states that he drinks occasionally, but sometimes this progresses to daily. Hepatitis panel pending. Plkt 146, but were normal on admission, coag's normal, lft normal, albumin 3.3. Will get liver workup. - Hx benign colonic mass. S/P partial hemicolectomy with Dr. Paddy Thomas ~3 years ago. States he is due for colonoscopy in April of 2016 with her. - HTN, Hyperlipidemia per primary PLAN: - Liquid diet - SBFT - Stool studies - Await hepatitis panel - AFP level - TRUE, ASMA, AMA - Ceruloplasmin, Alpha 1 Antitrypsin - Ferritin, Iron saturation - Cont. Zosyn - Cont. PPI - Consult Dr. Paddy Thomas, patient known to you - Supportive care - Further recommendations to follow based on results of above - Pt seen and examined by and myself and this note is written on her behalf (Gladys Dubois) Physician Comments seen, examined agree with above us abdomen in am if significant ascites us guided paracentesis patietn passed stool and flatus, states feels better (Maty Tijerina MD) Gladys Dubois Mar 27, 2016 10:50 Maty Tijerina MD Mar 27, 2016 18:25
[2016-03-27] MEDS: DOCUSATE SODIUM 50 MG/SENNA 8.6 MG TAB PO SCH ×2 (11:46→20:22)
[2016-03-27 11:56] VITALS: BP 126/78; PULSE 59; RESP 22; TEMP 97.6; O2SAT 94
[2016-03-27 12:41] LABS: C. DIFF EPI 027 PRESUMPTIVE NEGATIVE (NEGATIVE); C. DIFF TOXIN PCR NEGATIVE (NEGATIVE)
--- NOTE | 2016-03-27 13:39 | HHI.PR ---
Subjective Remarks Pt seen. Chart reviewed. SBO Objective Vital Signs Date Time Temp Pulse Resp B/P Pulse Ox O2 Delivery O2 Flow Rate FiO2 03/27/16 11:56 97.6 59 22 126/78 94 03/27/16 08:24 98.4 63 17 166/94 94 03/27/16 06:14 97.1 64 18 121/73 94 03/27/16 06:11 16 03/26/16 23:59 98.4 65 18 172/88 94 03/26/16 22:11 98.2 64 18 152/80 91 03/26/16 16:47 66 16 162/83 97 Room Air 03/26/16 14:13 69 16 179/102 98 Room Air I/O 03/26/16 03/26/16 03/26/16 03/27/16 03/27/16 03/27/16 07:00 15:00 23:00 07:00 15:00 23:00 # Voids 3 Result Diagram: 03/27/16 0607 03/27/16 0607 Objective Remarks Abd: distended,soft,nontender. Assessment and Plan Assessment and Plan Stooling over last hour-Resolving SBO Cancel MOM,Cancel SBFT, Cancel Zosyn. NPO for now. Casey Nichole MD Mar 27, 2016 13:38
--- NOTE | 2016-03-27 14:36 | MB ---
cc: JABIER ALVARADO M.D. DATE OF CONSULTATION: 03/27/2016 CHIEF COMPLAINT Nausea, vomiting, colicky abdominal pain. HISTORY OF PRESENT ILLNESS This patient had a robotic ascending colectomy done by Dr. Tuyet Thomas for a large cecal polyp just three years ago. He was originally seen by Dr. Kemp who sent her over to Dr. Thomas for robotic laparoscopic surgery. The patient has done fine since then. He says his stools have been off and on loose since that surgery, but otherwise he has done well. He is due for follow-up colonoscopy in April. The patient says that two days prior to this admission he began having severe crampy abdominal pain, colicky in nature, every 10 minutes or so and had nausea and vomiting Saturday night and Saturday morning. He had no bowel motions at that time or very little passage. He says that his abdomen felt bloated and distended and he came to the hospital yesterday morning and was eventually admitted to the hospital and is in the clinical decision unit at this time. The patient underwent CT scanning of the abdomen and pelvis last night and a follow-up abdominal x-ray this morning both of which showed small bowel obstruction at least partial. There was a small amount of air in the rectum but the abdominal x-ray today showed a large amount of distended small bowel with air-fluid levels consistent with a small bowel obstruction. He also had some ascites which is also consistent with the small bowel obstruction. The patient says that he took a full liquid diet today and still had crampy abdominal pain up until this morning and then about an hour or two ago he started having loose diarrheal stools and has had at least three of those. He feels much better but he still feels bloated. He is having no nausea or vomiting at this time. He was given Milk of Magnesia apparently today. PAST MEDICAL HISTORY, FAMILY HISTORY, SOCIAL HISTORY, FAMILY HISTORY, REVIEW OF SYSTEMS: Otherwise negative other than the previous ascending colectomy. PHYSICAL EXAMINATION GENERAL: A well-developed, well-nourished male in no acute distress at this time. SKIN: Warm and dry. HEENT: Extraocular muscles intact. NECK: Supple. ABDOMEN: Mildly distended, soft, still mild tympany, nontender on palpation. RECTAL: Exam was not done. EXTREMITIES: Range of motion within normal limits. NEUROLOGIC: Grossly normal. IMPRESSION Resolving small bowel obstruction with recent stools over the last hour, all loose, giving him some degree of relief of discomfort and no more nausea, vomiting or colicky pain. PLAN Dr. Thomas will follow him tomorrow. She is off today and I am seeing him in her absence. I have taken the liberty of stopping the Zosyn as there is no indication for this as well as stopping the Milk of Magnesia as we did not want to give laxatives on top of a small bowel obstruction. Also took the liberty of stopping his liquids for least 6-12 hours to ensure that he is fully cleared before giving him p.o. intake. I will order another abdominal x-ray for tomorrow morning for follow-up but I anticipate further clearing and eventual resumption of diet tomorrow. Again Dr. Thomas will follow him starting tomorrow. MD UTE Cheung/TWILA /1:42 PM /2:26 PM
[2016-03-27 16:05] LABS: HEMOGLOBIN A1a 1.1 %; HEMOGLOBIN A1b 1.5 %; HEMOGLOBIN Ao 85.6 %; HEMOGLOBIN F 0.2 %; HEMOGLOBIN P3 3.6 %; TRANSFERRIN IRON PROFILE 148 MG/DL (200-360)
[2016-03-27 16:07] LABS: FERRITIN 316 NG/ML (26-388)
[2016-03-27 16:08] VITALS: BP 130/84; PULSE 54; RESP 20; TEMP 97.8; O2SAT 94
--- NOTE | 2016-03-27 17:34 | HHI.PR ---
Addendum to Inpatient Note Addendum Reason: Additional Documentation Additional Information S: Pt re-evaluated because of c/f SBO. Pt reports copious dark, watery diarrhea with passage of flatus since this morning when we last saw and evaluated pt. He reports significantly decreased abdominal pain, and he denies any nausea or vomiting. O: Vital Signs Date Time Temp Pulse Resp B/P Pulse Ox O2 Delivery O2 Flow Rate FiO2 03/27/16 16:08 97.8 54 20 130/84 94 03/26/16 16:47 Room Air Gen: pt lying in bed in NAD Abd: +bowel sounds, soft, NTND with some guarding A/P: Abdominal x-ray and symptoms this morning were c/f SBO. Since that time, pt has passed BM, flatus, and has had significant decrease in his abdominal pain. -Dr. Nichole saw pt. Appreciate recommendations: d/c Zosyn, d/c Milk of Mag, NPO , abd x-ray tomorrow morning, likely resume diet tomorrow. cancel SBFT. - maintenance IVF, Reglan scheduled sdw Dr. Bing Perez,Willie Orlando MD R1 Mar 27, 2016 17:34
[2016-03-27] MEDS: METOCLOPRAMIDE HCL 10 MG/2 ML VIAL IV SCH ×2 (17:39→23:29)
[2016-03-27 19:12] VITALS: BP 114/73; PULSE 54; RESP 18; TEMP 98.2; O2SAT 93
[2016-03-27] MEDS: ENOXAPARIN SODIUM 40 MG/0.4 ML SYRINGE SQ SCH (20:21)
[2016-03-27] MEDS: ATORVASTATIN 20 MG TAB PO SCH (20:22)
--- NOTE | 2016-03-27 22:25 | RADRPT ---
EXAM DATE/TIME: 03/27/2016 21:49 [facility] COMPARISON: No previous studies available for comparison. INDICATIONS : Ascites. MEDICAL HISTORY : Afib. Abdominal pain. SURGICAL HISTORY : Cardiac cath. Ablation. Partial colon removal. ENCOUNTER: Initial ACUITY: 1 day PAIN SCORE: 0/10 LOCATION: Abdomen. AREA EVALUATED: Quadrants. FINDINGS: Imaging of the abdomen and pelvis was performed to evaluate for ascites for possible paracentesis. T here is a small amount of free fluid seen in the right upper and right lower quadrants and midline pe lvis. This is too small to drain. CONCLUSION: Mild ascites. Casey Conner MD on March 27, 2016 at 22:22 Board Certified Radiologist. This report was verified electronically.
[2016-03-28 00:55] VITALS: BP 155/86; PULSE 57; RESP 18; TEMP 98.3; O2SAT 93
[2016-03-28] MEDS: SIMETHICONE 125 MG CHEWABLE TAB PO SCH (05:22)
[2016-03-28] MEDS: SODIUM CHLOR 0.9% 1000 ML INJ 1,000 ML IV SCH ×3 (05:22→18:34)
[2016-03-28] MEDS: METOCLOPRAMIDE HCL 10 MG/2 ML VIAL IV SCH ×4 (05:22→21:31)
[2016-03-28] MEDS: MORPHINE SULFATE 4 MG/ML INJ IV PUSH PRN (05:31)
[2016-03-28 06:01] VITALS: BP 111/65; PULSE 59; RESP 18; TEMP 98.1; O2SAT 93
--- NOTE | 2016-03-28 06:40 | RADRPT ---
EXAM DATE/TIME: 03/28/2016 05:12 [facility] COMPARISON: ABDOMEN FLAT & UPRIGHT, March 27, 2016, 10:21. INDICATIONS : Abdominal distention. MEDICAL HISTORY : A-fib SURGICAL HISTORY : Colon resection. ENCOUNTER: Subsequent ACUITY: 4 - 6 days PAIN SCORE: 7/10 LOCATION: Bilateral Abdomen FINDINGS: There is continued small bowel dilatation characteristic of obstruction or ileus. No free air is iden tified. No organomegaly is evident. Air is identified in the left colon. CONCLUSION: 1. Findings of small bowel ileus or obstruction. There has been no significant change when compared t o the prior exam. Followup examination is recommended if clinically indicated. Sadiq Shah MD on March 28, 2016 at 6:37 Board Certified Radiologist. This report was verified electronically.
[2016-03-28 07:00] LABS: AUTOMATED NEUTROPHIL # 2.8 TH/MM3 (1.8-7.7); BASOPHIL % 0.4 % (0.0-2.0); EOSINOPHIL # 0.2 TH/MM3 (0-0.4); EOSINOPHIL % 4.8 % (0.0-4.0); HEMATOCRIT 42.9 % (39.0-51.0); HEMO FLAGS DIFF FINAL; LYMPH % 27.9 % (9.0-44.0); LYMPHOCYTE # 1.4 TH/MM3 (1.0-4.8); MEAN CELL VOLUME 92.3 FL (80.0-100.0); MEAN CORPUSCULAR HEMOGLOBIN 32.4 PG (27.0-34.0); MEAN CORPUSCULAR HGB CONC 35.1 % (32.0-36.0); MONO % 11.7 % (0.0-8.0); NEUT % 55.2 % (16.0-70.0); PLATELET COUNT 154 TH/MM3 (150-450); RED BLOOD COUNT 4.64 MIL/MM3 (4.50-5.90); RED CELL DISTRIBUTION WIDTH 12.5 % (11.6-17.2); WHITE BLOOD COUNT 5.1 TH/MM3 (4.0-11.0)
[2016-03-28 07:20] LABS: ALT (GPT) 12 U/L (12-78); ANION GAP 9 MEQ/L (5-15); AST (GOT) 7 U/L (15-37); BICARBONATE 24.3 MEQ/L (21.0-32.0); BLOOD UREA NITROGEN 11 MG/DL (7-18); CHLORIDE 105 MEQ/L (98-107); GLOMERULAR FILTRATION RATE 86 ML/MIN (>89); POTASSIUM 3.5 MEQ/L (3.5-5.1); SODIUM (NA) 138 MEQ/L (136-145)
[2016-03-28 07:22] LABS: ALKALINE PHOSPHATASE 36 U/L (45-117); TOTAL BILIRUBIN ADULT 0.9 MG/DL (0.2-1.0)
[2016-03-28 08:22] VITALS: BP 150/83; PULSE 56; RESP 20; TEMP 97.5; O2SAT 93
--- NOTE | 2016-03-28 08:22 | HHI.PR ---
Subjective Remarks Partial SBO no nausea Still with bloating, crampy pain passing liquid stool and some gas Objective Vital Signs Date Time Temp Pulse Resp B/P Pulse Ox O2 Delivery O2 Flow Rate FiO2 03/28/16 06:01 98.1 59 18 111/65 93 03/28/16 05:41 16 03/28/16 00:55 98.3 57 18 155/86 93 03/27/16 19:12 98.2 54 18 114/73 93 03/27/16 16:08 97.8 54 20 130/84 94 03/27/16 11:56 97.6 59 22 126/78 94 03/27/16 08:24 98.4 63 17 166/94 94 I/O 03/27/16 03/27/16 03/27/16 03/28/16 03/28/16 03/28/16 07:00 15:00 23:00 07:00 15:00 23:00 # Voids 3 1 # Bowel Movements 1 Result Diagram: 03/28/16 0604 03/28/16 0604 Objective Remarks Abdomen soft, moderately distended, soft Assessment and Plan Assessment and Plan Partial SBO Stop all oral meds except Metoprolol Mobilize Tuyet Thomas MD Mar 28, 2016 08:22
[2016-03-28] MEDS: SODIUM CHLORIDE 0.9% FLUSH 5 ML FLUSH FLUSH SCH ×2 (09:00→21:00)
--- NOTE | 2016-03-28 09:53 | HHI.FPPN ---
Subjective Remarks Pt seen and examined this morning. Continues to have intermittent abdominal pain, slightly improved. He is having bowel movements of liquid stool, dark browm in color, non bloody, +flatus. Denies nausea or vomiting. Remains NPO, except for metoprolol. Denies chest pain, shortness of breath, lower extremity pain. (Leni Thomas MD R2) Objective Vitals Vital Signs Date Time Temp Pulse Resp B/P Pulse Ox O2 Delivery O2 Flow Rate FiO2 03/28/16 08:22 97.5 56 20 150/83 93 03/28/16 06:01 98.1 59 18 111/65 93 03/28/16 05:41 16 03/28/16 00:55 98.3 57 18 155/86 93 03/27/16 19:12 98.2 54 18 114/73 93 03/27/16 16:08 97.8 54 20 130/84 94 03/27/16 11:56 97.6 59 22 126/78 94 I/O 03/27/16 03/27/16 03/27/16 03/28/16 03/28/16 03/28/16 07:00 15:00 23:00 07:00 15:00 23:00 # Voids 3 1 # Bowel Movements 1 (Leni Thomas MD R2) Result Diagram: 03/28/16 0604 03/28/16 0604 Objective Remarks GENERAL: This is a well-nourished, well-developed patient, appears to be uncomfortable. SKIN: No rashes, ecchymoses or lesions. Cool and dry. HEENT: Atraumatic. Normocephalic. Extraocular motions intact. No scleral icterus. No injection or drainage. Nose without bleeding, purulent drainage or septal hematoma. Throat without erythema, tonsillar hypertrophy or exudate. Uvula deviated to the left. Airway patent. CARDIOVASCULAR: Regular rate and rhythm without murmurs, gallops, or rubs. RESPIRATORY: Clear to auscultation. Breath sounds equal bilaterally. No wheezes , rales, or rhonchi. GASTROINTESTINAL: Abdomen soft, slightly distended, patient endorses andrea difuse lower abdominal tenderness, no rebound. No hepato-splenomegaly, or palpable masses. + Bowel sounds. MUSCULOSKELETAL: Extremities without clubbing, cyanosis, or edema. No joint tenderness, effusion, or edema noted. No calf tenderness. Negative Homans sign bilaterally. NEUROLOGICAL: Awake and alert. Motor and sensory grossly within normal limits. Normal speech. (Leni Thomas MD R2) A/P Assessment and Plan Patient is a 50-year-old male with past medical history significant for laparoscopic colectomy due to a benign mass, presenting due to persistent lower abdominal pain, nausea and vomiting, admitted with enteritis. Discharge Planning Anticipate discharge possibly in 1-2 days, pending clearance by GI and colorectal surgery and resolution of SBO. wdw Dr. Manzo (Leni Thomas MD R2) Attending Attestation Patient seen and examined. Case reviewed and discussed with the resident team Agree with plan of care as discussed with me and documented in the resident note. Abdominal pain and distention improved. Appreciate recs of CRS (Marni Manzo MD) Problem List: (1) Partial small bowel obstruction Status: Acute Plan: Abdominal x-ray significant for partial small bowel obstruction, no significant change. Pt continues to endorse abdominal pain. -GI consulted, appreciate recommendations -If patient develops nausea and vomiting consider NG tube placement -Dr. Tuyet Thomas, who preformed GI surgery in 2013 has been consulted, appreciate recommendations -Pt to be NPO, except Metoprolol, encourage ambulation Imaging: Abdominal x-ray 03/28/16: Findings of small bowel ileus or obstruction. There has been no significant change when compared to the prior exam. Follow-up examination is recommended if clinically indicated. Abdominal ultrasound 03/27/16: Mild ascites Abdominal x-ray 03/27/16: Bowel gas pattern concerning for partial small bowel obstruction with air-fluid levels and multiple small bowel loops visualized. Minimal air in the rectal vault. (2) Enteritis Status: Acute Plan: Patient endorses lower abdominal pain, partially relieved by pain medication. He has history of partial colectomy to remove a benign mass. + flatus, has not had a bowel movement since being admitted. -Hemoccult on admission was negative -Stool C. difficile negative -Additional stool studies in process Pain control: [place] 5/325, 1 tab Q4hrs prn pain 15 ON HOLD [place] 10/325, 1 tab Q4hrs prn pain 6-10 ON HOLD Morphine prn breakthrough Imaging: Abdomen/pelvis CT: Abdominal ascites. Heterogenous enhancement of the liver suggesting cirrhosis. Resection of the cecum and ascending colon. There is diffuse thickening and inflammation of multiple loops of distal ileum throughout the right lower quadrant. There is fluid surrounding these loops of bowel. They are moderately dilated however there is gas and stool within the remaining portions of colon. The inflammatory changes within the small bowel are nonspecific. Follow-up to ensure there is no underlying obstruction would be warranted. Findings are most consistent with a nonspecific enteritis. History: -Zosyn 3.375 g IV Q6hrs (03/26-03/27), discontinued per colorectal surgery (3) Nausea & vomiting Status: Acute Plan: Patient has been able to tolerate liquids by mouth while in the ED, currently NPO due to concern for small bowel obstruction. -Zofran 4 mg IV Q6hrs PRN -Reglan 10mg IV PRN -Compazine Supp PRN (4) History of alcohol use Status: Acute Plan: -Blood ethanol level less than 3 -CIWA protocol (5) Liver cirrhosis Status: Acute Plan: CT of the abdomen was significant for heterogenous enhancement of the liver suggesting cirrhosis. Patient denies history of hepatitis. -Hepatitis profile negative -AST low at 7, ALC 12 (6) HTN (hypertension) Status: Acute Plan: Continue home metoprolol succinate 50 mg PO Daily (7) Hyperlipemia Status: Acute Plan: -HOLD home atorvastatin 20 mg po QHS (8) FEN/PPX Status: Acute Plan: Fluids: Normal saline at 130 mls/hr Electrolytes: WNL, continue to monitor and replete as necessary Nutrition: NPO Dvt PPX: Lovenox GI PPX: Protonix, currently on hold (Leni Thomas MD R2) Leni Thomas MD R2 Mar 28, 2016 09:53 Marni Manzo MD Mar 29, 2016 15:33
[2016-03-28] MEDS: METOPROLOL SUCCINATE 50 MG EXTENDED RELEASE TAB PO SCH (10:11)
[2016-03-28 11:31] VITALS: BP 138/83; PULSE 61; RESP 20; TEMP 98.2; O2SAT 94
--- NOTE | 2016-03-28 13:38 | HHI.GIFU ---
Subjective Remarks No n/v. States that his pain is controlled right now, but that he had significant abdominal cramping last night after taking medications. Passing small liquid stool. (Gladys Dubois) Objective Vitals I&O Vital Signs Date Time Temp Pulse Resp B/P Pulse Ox O2 Delivery O2 Flow Rate FiO2 03/28/16 11:31 98.2 61 20 138/83 94 03/28/16 08:22 97.5 56 20 150/83 93 03/28/16 06:01 98.1 59 18 111/65 93 03/28/16 05:41 16 03/28/16 00:55 98.3 57 18 155/86 93 03/27/16 19:12 98.2 54 18 114/73 93 03/27/16 16:08 97.8 54 20 130/84 94 I/O 03/27/16 03/27/16 03/27/16 03/28/16 03/28/16 03/28/16 07:00 15:00 23:00 07:00 15:00 23:00 # Voids 3 1 # Bowel Movements 1 Laboratory Laboratory Tests Test 03/27/16 03/28/16 15:40 06:04 Tumor Marker Alpha Fetoprotein 1.3 White Blood Count 5.1 Red Blood Count 4.64 Hemoglobin 15.0 Hematocrit 42.9 Mean Corpuscular Volume 92.3 Mean Corpuscular Hemoglobin 32.4 Mean Corpuscular Hemoglobin 35.1 Concent Red Cell Distribution Width 12.5 Platelet Count 154 Mean Platelet Volume 8.7 Neutrophils (%) (Auto) 55.2 Lymphocytes (%) (Auto) 27.9 Monocytes (%) (Auto) 11.7 Eosinophils (%) (Auto) 4.8 Basophils (%) (Auto) 0.4 Neutrophils # (Auto) 2.8 Lymphocytes # (Auto) 1.4 Monocytes # (Auto) 0.6 Eosinophils # (Auto) 0.2 Basophils # (Auto) 0.0 CBC Comment DIFF FINAL Differential Comment Sodium Level 138 Potassium Level 3.5 Chloride Level 105 Carbon Dioxide Level 24.3 Anion Gap 9 Blood Urea Nitrogen 11 Creatinine 0.92 Estimat Glomerular Filtration 86 Rate Random Glucose 86 Calcium Level 7.8 Total Bilirubin 0.9 Aspartate Amino Transf 7 (AST/SGOT) Alanine Aminotransferase 12 (ALT/SGPT) Alkaline Phosphatase 36 Total Protein 5.5 Albumin 2.7 Date/Time Procedure Status Source Growth 03/27/16 11:18 Stool Occult Blood (RUFUS) - Final Complete Stool Stool HEMOCCULT NEGATIVE 03/27/16 11:18 Cryptosporidium Exam Received Stool Stool Pending 03/27/16 11:18 Stool Pus (RUFUS) Received Stool Stool Pending 03/27/16 11:18 Giardia Antigen (RUFUS) Received Stool Stool Pending 03/27/16 11:18 - Final Complete Stool Stool NO ENTERIC PATHOGENS DETECTED BY PCR... Imaging Last Impressions Abdomen X-Ray 03/28/16 0600 Signed Impressions: Service Date/Time: Monday, March 28, 2016 05:12 - CONCLUSION: 1. Findings of small bowel ileus or obstruction. There has been no significant change when compared to the prior exam. Followup examination is recommended if clinically indicated. Sadiq Shah MD Abdomen Ultrasound 03/27/16 0000 Signed Impressions: Service Date/Time: Sunday, March 27, 2016 21:49 - CONCLUSION: Mild ascites. Casey Conner MD Abdomen/Pelvis CT 03/26/16 0616 Signed Impressions: Service Date/Time: Saturday, March 26, 2016 08:04 - CONCLUSION: 1. The examination demonstrates abdominal ascites. There is heterogeneous enhancement of the liver suggesting cirrhosis. 2. There has been resection of the cecum and ascending colon. There is diffuse thickening and inflammation of multiple loops of distal ileum throughout the right lower quadrant. There is fluid surrounding these loops of bowel. They are moderately dilated however there is gas and stool within the remaining portions of colon. The inflammatory changes within the small bowel are nonspecific. Followup to ensure there is no underlying obstruction would be warranted. The celiac, SMA and CAMRON are widely patent. Overall, findings are most consistent with a nonspecific enteritis. Rolf Diehl MD Physical Exam HEENT: Normocephalic; atraumatic; no jaundice. CHEST: Chest is clear to auscultation and percussion. CARDIAC: RRR ABDOMEN: Soft, mildly distended, mild tenderness; no hepatosplenomegaly; bowel sounds are present in all four quadrants. EXTREMITIES: No clubbing, cyanosis, or edema. SKIN: Normal; no rash; no jaundice. STUNNER ANIMAL: No focal deficits; alert and oriented times three. (Gladys Dubois) Assessment and Plan Plan ASSESSMENT: - Abdominal pain with N/V/D, likely gastroenteritis. Abdomen/Pelvis CT (03/26/16 )----> 1. The examination demonstrates abdominal ascites. There is heterogeneous enhancement of the liver suggesting cirrhosis. 2. There has been resection of the cecum and ascending colon. There is diffuse thickening and inflammation of multiple loops of distal ileum throughout the right lower quadrant. There is fluid surrounding these loops of bowel. They are moderately dilated however there is gas and stool within the remaining portions of colon. The inflammatory changes within the small bowel are nonspecific. Followup to ensure there is no underlying obstruction would be warranted. The celiac, SMA and CAMRON are widely patent. Overall, findings are most consistent with a nonspecific enteritis. Abdomen X -Ray (03/28/16)-----> 1. Findings of small bowel ileus or obstruction. There has been no significant change when compared to the prior exam. Followup examination is recommended if clinically indicated. CRS following, SBFT was cancelled. NPO. No n/v. + Small liquid stool. Stool studies pending. Zosyn. - Abnormal imaging concerning for PSBO. Abdomen X-Ray (03/27/16)-----> Bowel gas pattern concerning for a partial small bowel structure in which air distention and air-fluid levels in multiple small bowel loops. Minimal air in the rectal vault. Clinically abdomen is soft. Had bowel movements on Saturday/Saturday. Will get SBFT, Consult Dr. Thomas. - Abnormal imaging of liver suggesting possible liver cirrhosis. Pt denies any known hx of liver cirrhosis. His ETOH is unclear, he states that he drinks occasionally, but sometimes this progresses to daily. Hepatitis panel pending. Plkt 146, but were normal on admission, coag's normal, lft normal, albumin 3.3. Abdomen Ultrasound (03/27/16)----> Mild ascites. Hepatitis negative, AFP 1.3, Iron Sturation 14% TRUE/ASMA/AMA pending, Ceruloplasmin/Alpha 1 Antitrypsin pending. - Hx benign colonic mass. S/P partial hemicolectomy with Dr. Paddy Thomas ~3 years ago. States he is due for colonoscopy in April of 2016 with her. - HTN, Hyperlipidemia per primary PLAN: - NPO - Await Stool studies - Await TRUE, ASMA, AMA - Await Ceruloplasmin, Alpha 1 Antitrypsin - Cont. Zosyn - Cont. PPI - CRS following - Supportive care - Further recommendations to follow based on results of above - Pt seen and examined by and myself and this note is written on her behalf (Gladys Dubois) Physician Comments agree with above (Maty Tijerina MD) Gladys Dubois Mar 28, 2016 13:38 Maty Tijerina MD Mar 28, 2016 18:06
[2016-03-28 16:21] VITALS: BP 136/81; PULSE 57; RESP 20; TEMP 98; O2SAT 93
[2016-03-28] MEDS: ENOXAPARIN SODIUM 40 MG/0.4 ML SYRINGE SQ SCH (20:00)
[2016-03-28] MEDS: ATORVASTATIN 20 MG TAB PO SCH (21:00)
[2016-03-28 21:25] VITALS: BP 152/90; PULSE 78; RESP 18; TEMP 98.7; O2SAT 98
[2016-03-29] MEDS: SODIUM CHLOR 0.9% 1000 ML INJ 1,000 ML IV SCH ×2 (02:34→08:46)
[2016-03-29 04:42] VITALS: BP 138/83; PULSE 58; RESP 18; TEMP 98; O2SAT 98
[2016-03-29] MEDS: METOCLOPRAMIDE HCL 10 MG/2 ML VIAL IV SCH ×3 (05:39→18:00)
--- NOTE | 2016-03-29 06:22 | RADRPT ---
EXAM DATE/TIME: 03/29/2016 05:50 [facility] COMPARISON: No previous studies available for comparison. INDICATIONS : Abdominal pain, distension for 5 days MEDICAL HISTORY : Cardiovascular disease. SURGICAL HISTORY : Cardiac catherization. Cardiac ablation. Colectomy. ENCOUNTER: Subsequent ACUITY: 4 - 6 days PAIN SCORE: 1/10 LOCATION: Bilateral abdomen FINDINGS: Supine view of the abdomen was performed. The abdominal bowel gas pattern is normal. No abnormal ma sses, calcifications, or organomegaly is seen. The osseous structures are unremarkable. CONCLUSION: 1. No evidence of obstruction. Sadiq Shah MD on March 29, 2016 at 6:20 Board Certified Radiologist. This report was verified electronically.
[2016-03-29 06:25] LABS: BASOPHIL % 0.7 % (0.0-2.0); EOSINOPHIL # 0.4 TH/MM3 (0-0.4); EOSINOPHIL % 6.4 % (0.0-4.0); HEMATOCRIT 40.4 % (39.0-51.0); HEMO FLAGS DIFF FINAL; LYMPH % 32.9 % (9.0-44.0); MEAN CELL VOLUME 92.3 FL (80.0-100.0); MEAN CORPUSCULAR HEMOGLOBIN 32.5 PG (27.0-34.0); MEAN CORPUSCULAR HGB CONC 35.2 % (32.0-36.0); MONO % 10.8 % (0.0-8.0); NEUT % 49.2 % (16.0-70.0); PLATELET COUNT 172 TH/MM3 (150-450); RED BLOOD COUNT 4.38 MIL/MM3 (4.50-5.90); RED CELL DISTRIBUTION WIDTH 12.4 % (11.6-17.2)
[2016-03-29 06:49] LABS: ALKALINE PHOSPHATASE 39 U/L (45-117); ALT (GPT) 11 U/L (12-78); ANION GAP 11 MEQ/L (5-15); AST (GOT) 9 U/L (15-37); BLOOD UREA NITROGEN 11 MG/DL (7-18); CHLORIDE 105 MEQ/L (98-107); GLOMERULAR FILTRATION RATE 103 ML/MIN (>89); POTASSIUM 3.5 MEQ/L (3.5-5.1); SODIUM (NA) 137 MEQ/L (136-145); TOTAL BILIRUBIN ADULT 0.9 MG/DL (0.2-1.0)
[2016-03-29 07:09] VITALS: BP 129/84; PULSE 51; RESP 18; TEMP 98.7; O2SAT 95
[2016-03-29] MEDS: SODIUM CHLORIDE 0.9% FLUSH 5 ML FLUSH FLUSH SCH ×2 (09:00→20:30)
[2016-03-29] MEDS: METOPROLOL SUCCINATE 50 MG EXTENDED RELEASE TAB PO SCH (10:07)
--- NOTE | 2016-03-29 11:00 | HHI.FPPN ---
Subjective Remarks Afebrile vital signs stable overnight. Patient reports his last bowel movement was liquid diarrheal with a little bit of solid last night. He endorses flatus since then. He reports that his abdominal pain that he came in with is resolved , but there is still some soreness of his abdominal muscles. Patient denies any fever, chills, chest pain, shortness of breath, nausea, vomiting. (Willie Perez MD R1) Objective Vitals Vital Signs Date Time Temp Pulse Resp B/P Pulse Ox O2 Delivery O2 Flow Rate FiO2 03/29/16 07:09 98.7 51 18 129/84 95 03/29/16 04:42 98.0 58 18 138/83 98 03/28/16 21:25 98.7 78 18 152/90 98 03/28/16 16:21 98.0 57 20 136/81 93 03/28/16 11:31 98.2 61 20 138/83 94 (Willie Perez MD R1) Result Diagram: 03/29/16 0543 03/29/16 0543 Imaging Last Impressions Abdomen X-Ray 03/29/16 0000 Signed Impressions: Service Date/Time: March 05:50 - CONCLUSION: 1. No evidence of obstruction. Sadiq Shah MD Abdomen Ultrasound 03/27/16 0000 Signed Impressions: Service Date/Time: Sunday, March 27, 2016 21:49 - CONCLUSION: Mild ascites. Casey Conner MD Abdomen/Pelvis CT 03/26/16 0616 Signed Impressions: Service Date/Time: Saturday, March 26, 2016 08:04 - CONCLUSION: 1. The examination demonstrates abdominal ascites. There is heterogeneous enhancement of the liver suggesting cirrhosis. 2. There has been resection of the cecum and ascending colon. There is diffuse thickening and inflammation of multiple loops of distal ileum throughout the right lower quadrant. There is fluid surrounding these loops of bowel. They are moderately dilated however there is gas and stool within the remaining portions of colon. The inflammatory changes within the small bowel are nonspecific. Followup to ensure there is no underlying obstruction would be warranted. The celiac, SMA and CAMRON are widely patent. Overall, findings are most consistent with a nonspecific enteritis. Rolf Diehl MD Objective Remarks GENERAL: This is a well-nourished, well-developed man patient, appears to be comfortable and in no acute distress. SKIN: No rashes, ecchymoses or lesions. Cool and dry. HEENT: Atraumatic. Normocephalic. Extraocular motions intact. No scleral icterus. No injection or drainage. Nose without bleeding, purulent drainage. Moist mucous membranes Airway patent. CARDIOVASCULAR: Regular rate and rhythm without murmurs, gallops, or rubs. RESPIRATORY: Clear to auscultation. Breath sounds equal bilaterally. No wheezes , rales, or rhonchi. GASTROINTESTINAL: Hypoactive bowel sounds. Abdomen soft, nontender nondistended , no rebound. No palpable masses. MUSCULOSKELETAL: Extremities without clubbing, cyanosis, or edema. No joint tenderness, effusion, or edema noted. No calf tenderness. NEUROLOGICAL: Awake and alert. Motor and sensory grossly within normal limits. Normal speech. (Willie Perez MD R1) A/P Assessment and Plan Patient is a 50-year-old male with past medical history significant for laparoscopic colectomy due to a benign mass, presenting due to persistent lower abdominal pain, nausea and vomiting, admitted with enteritis. Discharge Planning Anticipate discharge possibly in 1-2 days, pending clearance by GI and colorectal surgery and resolution of SBO. dw Dr. Manzo (Willie Perez MD R1) Attending Attestation Patient seen and examined. Case reviewed and discussed Agree with plan of care as discussed with me and documented in the resident note. (Marni Manzo MD) Problem List: (1) Partial small bowel obstruction Status: Acute Plan: Abdominal x-ray from today showed no evidence of obstruction. Patient denies significant abdominal pain. -GI consulted, appreciate recommendations -If patient develops nausea and vomiting consider NG tube placement -Dr. Tuyet Thomas, who preformed GI surgery in 2013 has been consulted, appreciate recommendations -Pt to be NPO, except Metoprolol, encourage ambulation -Anticipate advancing diet as tolerated -Maintenance fluids of an as IV at 130 mL per hour -Supportive care and symptomatic treatment Imaging: Abdominal x-ray from 01/26/17 showed no evidence of obstruction. Abdominal x-ray 03/28/16: Findings of small bowel ileus or obstruction. There has been no significant change when compared to the prior exam. Follow-up examination is recommended if clinically indicated. Abdominal ultrasound 2/14/17: Mild ascites Abdominal x-ray 03/27/16: Bowel gas pattern concerning for partial small bowel obstruction with air-fluid levels and multiple small bowel loops visualized. Minimal air in the rectal vault. Workup: Stool studies negative. Stool occult blood negative. Alpha 1 antitrypsin upper limit of normal Ceruloplasmin pending TRUE negative Anti-smooth muscle antibody negative Antimitochondrial antibody pending Hepatitis panel negative C. difficile negative (2) Enteritis Status: Acute Plan: Patient denies significant lower abdominal pain. He has history of partial colectomy to remove a benign mass. +flatus, patient endorses bowel movement last night - Hold PPI - CRS following - Supportive care Pain control: [place] 5/325, 1 tab Q4hrs prn pain 15 ON HOLD [place] 10/325, 1 tab Q4hrs prn pain 6-10 ON HOLD Morphine prn breakthrough. Last dose 03/28/16 at 05:31 Imaging: Abdomen/pelvis CT: Abdominal ascites. Heterogenous enhancement of the liver suggesting cirrhosis. Resection of the cecum and ascending colon. There is diffuse thickening and inflammation of multiple loops of distal ileum throughout the right lower quadrant. There is fluid surrounding these loops of bowel. They are moderately dilated however there is gas and stool within the remaining portions of colon. The inflammatory changes within the small bowel are nonspecific. Follow-up to ensure there is no underlying obstruction would be warranted. Findings are most consistent with a nonspecific enteritis. Work up: Described in section above, notably: -Hemoccult on admission was negative -Stool C. difficile negative -Additional stool studies in process Antibiotic History: -Zosyn 3.375 g IV Q6hrs (03/26-03/27), discontinued per colorectal surgery (3) Nausea & vomiting Status: Acute Plan: Patient has been able to tolerate liquids by mouth while in the ED, currently NPO due to concern for small bowel obstruction. -Zofran 4 mg IV Q6hrs PRN last dose on 03/27/16 at 00:29 -Reglan 10mg IV PRN last received on 03/28/16 at 05:22 -Compazine Supp PRN patient has not received (4) History of alcohol use Status: Acute Plan: -Blood ethanol level less than 3 -CIWA protocol (5) Liver cirrhosis Status: Acute Plan: CT of the abdomen was significant for heterogenous enhancement of the liver suggesting cirrhosis. Patient denies history of hepatitis. -Hepatitis profile negative -AST low at 9, ALT low at 11 -AFP wnl at 1.3 (6) HTN (hypertension) Status: Acute Plan: Continue home metoprolol succinate 50 mg PO Daily (7) Hyperlipemia Status: Acute Plan: -HOLD home atorvastatin 20 mg po QHS (8) FEN/PPX Status: Acute Plan: Fluids: Normal saline at 130 mls/hr Electrolytes: WNL, continue to monitor and replete as necessary Nutrition: NPO Dvt PPX: Lovenox GI PPX: Protonix, currently on hold (Willie Perez MD R1) Willie Perez MD R1 Mar 29, 2016 11:00 Marni Manzo MD Apr 02, 2016 09:12
[2016-03-29 12:10] VITALS: BP 148/87; PULSE 53; RESP 20; TEMP 98.6; O2SAT 97
--- NOTE | 2016-03-29 15:39 | HHI.PR ---
Subjective Remarks Resolving partial SBO no further crampy pain, slightly sore Passing large amounts gas Objective Vital Signs Date Time Temp Pulse Resp B/P Pulse Ox O2 Delivery O2 Flow Rate FiO2 03/29/16 12:10 98.6 53 20 148/87 97 03/29/16 07:09 98.7 51 18 129/84 95 03/29/16 04:42 98.0 58 18 138/83 98 03/28/16 21:25 98.7 78 18 152/90 98 03/28/16 16:21 98.0 57 20 136/81 93 Result Diagram: 03/29/16 0543 03/29/16 0543 Objective Remarks Abdomen soft, non distended soft Assessment and Plan Assessment and Plan Partial SBO Resolving Xray with nl bowel gas pattern Try soft diet, if tolerates, home in am Tuyet Thomas MD Mar 29, 2016 15:39
[2016-03-29 15:44] VITALS: BP 150/101; PULSE 52; RESP 20; TEMP 98; O2SAT 99
[2016-03-29] MEDS: ENOXAPARIN SODIUM 40 MG/0.4 ML SYRINGE SQ SCH (20:00)
[2016-03-29 20:02] VITALS: BP 142/85; PULSE 54; RESP 21; TEMP 98.8; O2SAT 99
[2016-03-29] MEDS: ATORVASTATIN 20 MG TAB PO SCH (20:31)
[2016-03-30] VITALS: BP 144/86; PULSE 88; RESP 18; TEMP 98.7; O2SAT 97
[2016-03-30] MEDS: SODIUM CHLOR 0.9% 1000 ML INJ 1,000 ML IV SCH ×2 (00:10→06:56)
[2016-03-30] MEDS: METOCLOPRAMIDE HCL 10 MG/2 ML VIAL IV SCH ×2 (06:00)
[2016-03-30] MEDS: SODIUM CHLORIDE 0.9% FLUSH 5 ML FLUSH FLUSH SCH (06:56)
[2016-03-30 07:43] LABS: HEMATOCRIT 42.9 % (39.0-51.0); MEAN CELL VOLUME 91.1 FL (80.0-100.0); MEAN CORPUSCULAR HEMOGLOBIN 31.8 PG (27.0-34.0); MEAN CORPUSCULAR HGB CONC 34.9 % (32.0-36.0); PLATELET COUNT 195 TH/MM3 (150-450); RED BLOOD COUNT 4.71 MIL/MM3 (4.50-5.90); RED CELL DISTRIBUTION WIDTH 12.8 % (11.6-17.2); REVIEW FLAG FINAL
[2016-03-30 08:09] LABS: ALKALINE PHOSPHATASE 42 U/L (45-117); ALT (GPT) 15 U/L (12-78); ANION GAP 9 MEQ/L (5-15); AST (GOT) 11 U/L (15-37); BICARBONATE 23.6 MEQ/L (21.0-32.0); BLOOD UREA NITROGEN 8 MG/DL (7-18); CHLORIDE 104 MEQ/L (98-107); GLOMERULAR FILTRATION RATE 108 ML/MIN (>89); POTASSIUM 3.5 MEQ/L (3.5-5.1); SODIUM (NA) 137 MEQ/L (136-145); TOTAL BILIRUBIN ADULT 0.7 MG/DL (0.2-1.0)
[2016-03-30 08:27] VITALS: BP 130/81; PULSE 53; RESP 18; TEMP 97.4; O2SAT 93
[2016-03-30] MEDS: METOPROLOL SUCCINATE 50 MG EXTENDED RELEASE TAB PO SCH (08:28)
--- NOTE | 2016-03-30 09:01 | HHI.PR ---
Subjective Remarks Resolved partial SBO Loose stool this am No pain Objective Vital Signs Date Time Temp Pulse Resp B/P Pulse Ox O2 Delivery O2 Flow Rate FiO2 03/30/16 08:27 97.4 53 18 130/81 93 03/30/16 00:00 98.7 88 18 144/86 97 03/29/16 20:02 98.8 54 21 142/85 99 03/29/16 15:44 98.0 52 20 150/101 99 03/29/16 12:10 98.6 53 20 148/87 97 I/O 03/29/16 03/29/16 03/29/16 03/30/16 03/30/16 03/30/16 07:00 15:00 23:00 07:00 15:00 23:00 Intake Total 1850 ml Output Total 400 ml Balance 1450 ml Intake Oral 650 ml IV Total 1200 ml Output Urine Total 400 ml # Voids 8 # Bowel Movements 2 Result Diagram: 03/30/16 0710 03/30/16 0710 Objective Remarks Abdomen soft, non distended, nontender Assessment and Plan Assessment and Plan Partial SBO Resolved Tolerating diet Passing stool Home today if ok with Medicine Tuyet Thomas MD Mar 30, 2016 09:01
--- NOTE | 2016-03-30 10:02 | HHI.DCPOC ---
Discharge Care Plan Diagnosis: (1) Partial small bowel obstruction (2) Abdominal pain (3) Nausea & vomiting Goals to Promote Your Health * To prevent worsening of your condition and complications, please come back to Emergency Department if you experience overwhelming abdominal pain, intractable nausea and vomiting, or inability to pass gas or stool. * To maintain your health at the optimal level, please follow up with doctors as instructed and take medications as prescribed. Directions to Meet Your Goals Take your medications as prescribed Follow your dietary instruction Follow activity as directed Keep your appointments as scheduled Take your immunizations and boosters as scheduled If your symptoms worsen call your PCP, if no PCP go to Urgent Care Center or Emergency Room Smoking is Dangerous to Your Health. Avoid second hand smoke Call the 24-hour hour crisis hotline for domestic abuse at Willie Perez MD R1 Mar 30, 2016 10:02
--- NOTE | 2016-03-30 11:15 | HHI.FPPN ---
Subjective Remarks Acute events overnight. Afebrile and vital signs stable overnight. Patient reports that he had a large bowel movement around 9 AM. He denies any significant abdominal pain, but endorses soreness of his abdominal muscles. He denies any nausea, vomiting, fever, chills. He reports that he kept down his food last night and ate again this morning, without any associated abdominal pain, nausea, vomiting. (Willie Perez MD R1) Objective Vitals Vital Signs Date Time Temp Pulse Resp B/P Pulse Ox O2 Delivery O2 Flow Rate FiO2 03/30/16 08:27 97.4 53 18 130/81 93 03/30/16 00:00 98.7 88 18 144/86 97 03/29/16 20:02 98.8 54 21 142/85 99 03/29/16 15:44 98.0 52 20 150/101 99 03/29/16 12:10 98.6 53 20 148/87 97 I/O 03/29/16 03/29/16 03/29/16 03/30/16 03/30/16 03/30/16 07:00 15:00 23:00 07:00 15:00 23:00 Intake Total 1850 ml Output Total 400 ml Balance 1450 ml Intake Oral 650 ml IV Total 1200 ml Output Urine Total 400 ml # Voids 8 # Bowel Movements 2 (Willie Perez MD R1) Result Diagram: 03/30/16 0710 03/30/16 0710 Imaging Last Impressions Abdomen X-Ray 03/29/16 0000 Signed Impressions: Service Date/Time: March 05:50 - CONCLUSION: 1. No evidence of obstruction. Sadiq Shah MD Abdomen Ultrasound 03/27/16 0000 Signed Impressions: Service Date/Time: Sunday, March 27, 2016 21:49 - CONCLUSION: Mild ascites. Casey Conner MD Abdomen/Pelvis CT 03/26/16 0616 Signed Impressions: Service Date/Time: Saturday, March 26, 2016 08:04 - CONCLUSION: 1. The examination demonstrates abdominal ascites. There is heterogeneous enhancement of the liver suggesting cirrhosis. 2. There has been resection of the cecum and ascending colon. There is diffuse thickening and inflammation of multiple loops of distal ileum throughout the right lower quadrant. There is fluid surrounding these loops of bowel. They are moderately dilated however there is gas and stool within the remaining portions of colon. The inflammatory changes within the small bowel are nonspecific. Followup to ensure there is no underlying obstruction would be warranted. The celiac, SMA and CAMRON are widely patent. Overall, findings are most consistent with a nonspecific enteritis. Rolf Diehl MD Objective Remarks GENERAL: This is a well-nourished, well-developed man patient, appears to be comfortable and in no acute distress. SKIN: No rashes, ecchymoses or lesions. Cool and dry. HEENT: Atraumatic. Normocephalic. Extraocular motions intact. No scleral icterus. No injection or drainage. Nose without bleeding, purulent drainage. Moist mucous membranes Airway patent. CARDIOVASCULAR: Regular rate and rhythm without murmurs, gallops, or rubs. RESPIRATORY: Clear to auscultation. Breath sounds equal bilaterally. No wheezes , rales, or rhonchi. GASTROINTESTINAL: Normoactive bowel sounds. Abdomen soft, nontender nondistended , no rebound. No palpable masses. MUSCULOSKELETAL: Extremities without clubbing, cyanosis, or edema. No joint tenderness, effusion, or edema noted. No calf tenderness. NEUROLOGICAL: Awake and alert. Motor and sensory grossly within normal limits. Normal speech. (Willie Perez MD R1) A/P Assessment and Plan Patient is a 50-year-old male with past medical history significant for laparoscopic colectomy due to a benign mass, presenting due to persistent lower abdominal pain, nausea and vomiting, diagnosed with partial small bowel obstruction. Discharge Planning Anticipate discharge today given resolution of SBO. Patient cleared for discharge by GI per my communication with MINGO Briceno. Patient cleared for discharge by colorectal surgery Dr. Thomas' note. sdw Dr. Mitesh Manzo (Willie Perez MD R1) Attending Attestation Patient seen and examined. Case reviewed and discussed Agree with plan of care as discussed with me and documented in the resident note. (Marni Manzo MD) Problem List: (1) Partial small bowel obstruction Status: Acute Plan: He has history of partial colectomy to remove a benign mass. Ever since then, he has had loose stools. Abdominal x-ray from 03/29 showed no evidence of obstruction. Patient denies significant abdominal pain, nausea, vomiting. -GI consulted, appreciate recommendations. Patient cleared for discharge. -If patient develops nausea and vomiting consider NG tube placement -Dr. Tuyet Thomas, who preformed GI surgery in 2014 has been consulted, appreciate recommendations. Patient cleared for discharge. -Pt tolerating regular basic diet by mouth; encourage ambulation -Patient hydrating well by mouth. Stop IVF. -Supportive care and symptomatic treatment Imaging: Abdominal x-ray from 01/26/17 showed no evidence of obstruction. Abdominal x-ray 03/28/16: Findings of small bowel ileus or obstruction. There has been no significant change when compared to the prior exam. Follow-up examination is recommended if clinically indicated. Abdominal ultrasound 03/27/16: Mild ascites Abdominal x-ray 03/27/16: Bowel gas pattern concerning for partial small bowel obstruction with air-fluid levels and multiple small bowel loops visualized. Minimal air in the rectal vault. Workup: Stool studies negative. Stool occult blood negative. Alpha 1 antitrypsin upper limit of normal Ceruloplasmin pending TRUE negative Anti-smooth muscle antibody negative Antimitochondrial antibody pending Hepatitis panel negative C. difficile negative (2) Enteritis Status: Acute Plan: Patient denies significant lower abdominal pain. He has history of partial colectomy to remove a benign mass. Ever since then, he has had loose stools. Patient endorses bowel movement this morning. - Hold PPI - CRS following - Supportive care Pain control: [place] 5/325, 1 tab Q4hrs prn pain 15 ON HOLD [place] 10/325, 1 tab Q4hrs prn pain 6-10 ON HOLD Morphine prn breakthrough. Last dose 03/28/16 at 05:31 Imaging: Abdomen/pelvis CT: Abdominal ascites. Heterogenous enhancement of the liver suggesting cirrhosis. Resection of the cecum and ascending colon. There is diffuse thickening and inflammation of multiple loops of distal ileum throughout the right lower quadrant. There is fluid surrounding these loops of bowel. They are moderately dilated however there is gas and stool within the remaining portions of colon. The inflammatory changes within the small bowel are nonspecific. Follow-up to ensure there is no underlying obstruction would be warranted. Findings are most consistent with a nonspecific enteritis. Work up: Described in section above, notably: -Hemoccult on admission was negative -Stool C. difficile negative -Additional stool studies in process Antibiotic History: -Zosyn 3.375 g IV Q6hrs (03/26-03/27), discontinued per colorectal surgery (3) Nausea & vomiting Status: Acute Plan: Patient has been able to tolerate liquids by mouth while in the ED, currently NPO due to concern for small bowel obstruction. -Zofran 4 mg IV Q6hrs PRN last dose on 03/27/16 at 00:29 -Reglan 10mg IV PRN last received on 03/28/16 at 05:22 -Compazine Supp PRN patient has not received (4) History of alcohol use Status: Acute Plan: -Blood ethanol level less than 3 -CIWA protocol (5) Liver cirrhosis Status: Acute Plan: CT of the abdomen was significant for heterogenous enhancement of the liver suggesting cirrhosis. Patient denies history of hepatitis. -Hepatitis profile negative -AST low at 11, ALT wnl at 15 -AFP wnl at 1.3 (6) HTN (hypertension) Status: Acute Plan: -Continue home metoprolol succinate 50 mg PO Daily (7) Hyperlipemia Status: Acute Plan: -HOLD home atorvastatin 20 mg po QHS (8) FEN/PPX Status: Acute Plan: Fluids: Normal saline at 130 mls/hr can be discontinued Electrolytes: WNL, continue to monitor and replete as necessary Nutrition: Regular basic diet Dvt PPX: Lovenox GI PPX: Protonix, currently on hold (Willie Perez MD R1) Willie Perez MD R1 Mar 30, 2016 11:15 Marni Manzo MD Apr 03, 2016 13:18
[2016-03-31 03:50] LABS: MITOCHONDRIAL ABS LESS THAN 20.0 U (())
--- NOTE | 2016-05-21 06:00 | HHI.DS ---
Discharge Summary Admission Date Mar 27, 2016 at 12:53 Discharge Date: Mar 30, 2016 Admitting Diagnosis Intractable abdominal pain, enteritis (1) Partial small bowel obstruction Diagnosis: Principal Plan: He has history of partial colectomy to remove a benign mass. Ever since then, he has had loose stools. Abdominal x-ray from 03/29 showed no evidence of obstruction. Patient denies significant abdominal pain, nausea, vomiting prior to discharge. -GI consulted, appreciate recommendations. Patient cleared for discharge. -If patient develops nausea and vomiting consider NG tube placement -Dr. Tuyet Thomas, who preformed GI surgery in 2013 has been consulted, appreciate recommendations. Patient cleared for discharge. -Pt tolerating regular basic diet by mouth; encourage ambulation -Patient hydrating well by mouth. Stop IVF. -Supportive care and symptomatic treatment Imaging: Abdominal x-ray from 01/26/17 showed no evidence of obstruction. Abdominal x-ray 03/28/16: Findings of small bowel ileus or obstruction. There has been no significant change when compared to the prior exam. Follow-up examination is recommended if clinically indicated. Abdominal ultrasound 03/27/16: Mild ascites Abdominal x-ray 03/27/16: Bowel gas pattern concerning for partial small bowel obstruction with air-fluid levels and multiple small bowel loops visualized. Minimal air in the rectal vault. Workup: Stool studies negative. Stool occult blood negative. Alpha 1 antitrypsin upper limit of normal Ceruloplasmin pending TRUE negative Anti-smooth muscle antibody negative Antimitochondrial antibody pending Hepatitis panel negative C. difficile negative (2) Enteritis Diagnosis: Principal Plan: Patient denies significant lower abdominal pain. He has history of partial colectomy to remove a benign mass. Ever since then, he has had loose stools. Patient endorses bowel movement the morning prior to discharge. - Hold PPI - CRS following - Supportive care Pain control: [place] 5/325, 1 tab Q4hrs prn pain 15 ON HOLD [place] 10/325, 1 tab Q4hrs prn pain 6-10 ON HOLD Morphine prn breakthrough. Last dose 03/28/16 at 05:31 Imaging: Abdomen/pelvis CT: Abdominal ascites. Heterogenous enhancement of the liver suggesting cirrhosis. Resection of the cecum and ascending colon. There is diffuse thickening and inflammation of multiple loops of distal ileum throughout the right lower quadrant. There is fluid surrounding these loops of bowel. They are moderately dilated however there is gas and stool within the remaining portions of colon. The inflammatory changes within the small bowel are nonspecific. Follow-up to ensure there is no underlying obstruction would be warranted. Findings are most consistent with a nonspecific enteritis. Work up: Described in section above, notably: -Hemoccult on admission was negative -Stool C. difficile negative -Additional stool studies in process Antibiotic History: -Zosyn 3.375 g IV Q6hrs (03/26-03/27), discontinued per colorectal surgery (3) Nausea & vomiting Diagnosis: Principal Plan: Patient has been able to tolerate liquids by mouth while in the ED, was NPO due to concern for small bowel obstruction. -Zofran 4 mg IV Q6hrs PRN last dose on 03/27/16 at 00:29 -Reglan 10mg IV PRN last received on 03/28/16 at 05:22 -Compazine Supp PRN patient has not received (4) History of alcohol use Diagnosis: Secondary Plan: -Blood ethanol level less than 3 -CIWA protocol (5) Liver cirrhosis Diagnosis: Secondary Plan: CT of the abdomen was significant for heterogenous enhancement of the liver suggesting cirrhosis. Patient denies history of hepatitis. -Hepatitis profile negative -AST low at 11, ALT wnl at 15 -AFP wnl at 1.3 (6) HTN (hypertension) Diagnosis: Secondary Plan: -Continue home metoprolol succinate 50 mg PO Daily (7) Hyperlipemia Diagnosis: Secondary Plan: -HOLD home atorvastatin 20 mg po QHS (8) FEN/PPX Diagnosis: Secondary Plan: Fluids: Normal saline at 130 mls/hr can be discontinued Electrolytes: WNL, continue to monitor and replete as necessary Nutrition: Regular basic diet Dvt PPX: Lovenox GI PPX: Protonix, currently on hold Consultants gastroenterology and colorectal surgery Brief History Patient is a 50-year-old male with past medical history significant for laparoscopic colectomy due to a benign mass, presenting due to persistent lower abdominal pain. Patient reports that on Saturday at approximately 10 AM he began to have sharp pain in his lower abdomen. Pain occurs intermittently about every 10 minutes, 89/10 in intensity, he describes the pain as a burning sensation. Pain has been associated with vomiting, nonbloody. There are no alleviating factors, pain is made worse by eating or drinking. He came to the ED because he has been unable to tolerate this pain. His pain has not improved. He has not been able to eat solid food since Saturday, but he has tolerated liquids while in the ED. Yesterday he had a very dark liquid stool, unsure if it was bloody. He denies any new medications, new foods, sick contacts. On Saturday he ate at a restaurant and shared a hamburger with his . His denies similar symptoms. He last passed gas and had a bowel movement yesterday. He has been belching, negative flatus today. He denies ever having similar pain in the past. Imaging Last Impressions Abdomen X-Ray 03/29/16 0000 Signed Impressions: Service Date/Time: March 05:50 - CONCLUSION: 1. No evidence of obstruction. Sadiq Shah MD Abdomen Ultrasound 03/27/16 0000 Signed Impressions: Service Date/Time: Sunday, March 27, 2016 21:49 - CONCLUSION: Mild ascites. Casey Conner MD Abdomen/Pelvis CT 03/26/16 0616 Signed Impressions: Service Date/Time: Saturday, March 26, 2016 08:04 - CONCLUSION: 1. The examination demonstrates abdominal ascites. There is heterogeneous enhancement of the liver suggesting cirrhosis. 2. There has been resection of the cecum and ascending colon. There is diffuse thickening and inflammation of multiple loops of distal ileum throughout the right lower quadrant. There is fluid surrounding these loops of bowel. They are moderately dilated however there is gas and stool within the remaining portions of colon. The inflammatory changes within the small bowel are nonspecific. Followup to ensure there is no underlying obstruction would be warranted. The celiac, SMA and CAMRON are widely patent. Overall, findings are most consistent with a nonspecific enteritis. Rolf Diehl MD PE at Discharge GENERAL: This is a well-nourished, well-developed man patient, appears to be comfortable and in no acute distress. SKIN: No rashes, ecchymoses or lesions. Cool and dry. HEENT: Atraumatic. Normocephalic. Extraocular motions intact. No scleral icterus. No injection or drainage. Nose without bleeding, purulent drainage. Moist mucous membranes Airway patent. CARDIOVASCULAR: Regular rate and rhythm without murmurs, gallops, or rubs. RESPIRATORY: Clear to auscultation. Breath sounds equal bilaterally. No wheezes , rales, or rhonchi. GASTROINTESTINAL: Normoactive bowel sounds. Abdomen soft, nontender nondistended , no rebound. No palpable masses. MUSCULOSKELETAL: Extremities without clubbing, cyanosis, or edema. No joint tenderness, effusion, or edema noted. No calf tenderness. NEUROLOGICAL: Awake and alert. Motor and sensory grossly within normal limits. Normal speech. Hospital Course Pt was admitted with intractable abdominal pain, nausea and vomiting, and inability to tolerate/hydrate by mouth with a likely partial small bowel obstruction for which gastroenterology and colorectal surgery was consulted. Pt was treated conservatively with NPO, IVF, and medications to reduce his pain and nausea. Pt's pain and symptoms resolved without significant intervention. Pt was defecating and tolerated food and water by mouth prior to discharge. Pt Condition on Discharge: Good Discharge Disposition: Discharge Home Discharge Instructions DIET: Follow Instructions for: As Tolerated, No Restrictions, High Fiber Diet Additional Diet Instructions: Please eat a high fiber diet to move your bowels regularly. Activities you can perform: Regular-No Restrictions Follow up Referrals: Gastroenterology - 1 Week GI/CRS Colonoscopy - 1 Week Physician - 1 Week Continued Medications: Atorvastatin (Lipitor) 20 Mg Tab 20 MG PO HS Cholesterol Management #30 Ref 0 TAB Metoprolol Succinate ER 24 HR (Toprol XL) 50 Mg Tab 50 MG PO DAILY #30 Ref 0 TAB Levan-3 Fatty Acids (Fish Oil 1000 mg) 1 Cap Cap 1000 MG PO BID Willie Perez MD R1 May 21, 2016 06:00
== END 2016-03-30 13:25 | disposition home or self-care (01) | DRG 389 ==
LOC: NEPC 05:50 → NEDA 11:19 → NEDH 16:46 → NEPHCDU 21:20 → OBSVTOIN 03-27 12:53
PROVIDERS: ADMIT Family Medicine; ATTEND Family Medicine
DX: K56.60 Unspecified intestinal obstruction (principal); R18.8 Other ascites; K74.60 Unspecified cirrhosis of liver; I48.91 Unspecified atrial fibrillation; I10 Essential (primary) hypertension; E86.0 Dehydration; E78.5 Hyperlipidemia, unspecified; K52.9 Noninfective gastroenteritis and colitis, unspecified; Z90.49 Acquired absence of other specified parts of digestive tract; Z88.5 Allergy status to narcotic agent; F17.210 Nicotine dependence, cigarettes, uncomplicated; Z86.010 Personal history of colon polyps
CPT/HCPCS: 74000; 74020; 74177; 76705; 80048; 80053; 80074; 80307; 80320; 81001; 82103; 82105; 82272; 82390; 82728; 83036; 83520; 83540; 83550; 83605; 83690; 85025; 85027; 85610; 85730; 86038; 86256; 87205; 87328; 87329; 87493; 87506; 93005; 96374; C9113; G0378; G8987-GP; G8988-GP; J1650; J2270; J2405; J2543; J2765; J7030; Q9967